=== PATIENT | female | born 1990 | race Caucasian/White ===

== ENCOUNTER 2016-12-21 23:30 | Inpatient (IN) | payer MEDICARE, MEDICAID ==
--- NOTE | 2016-12-22 00:26 | EDM.PDOC ---
ED HPI GENERAL MEDICAL PROBLEM - General Chief Complaint: Chest Pain Stated Complaint: [facility] Time Seen by Provider: 12/21/16 23:45 Source of Information: Reports: Patient, EMS, Other ( care home records. ) History Limitations: Reports: No Limitations - History of Present Illness INITIAL COMMENTS - FREE TEXT/NARRATIVE: Pt arrived with a history of left sided pain under the diaphram and pain in the left upper abdoman. She states she has not been able to hold anything down all day. pt had an ekg in the ambulance-- 12 lead that looked normal. A repeat ekg will be obtained here. Asa was not given because this was more abdomanal pain than chest pain. Onset: Gradual, Other ( worse today. ) Duration: Day(s):, Getting Worse, Other ( Pt was not able to hold anything down all day today. ) Location: Reports: Chest, Abdomen Associated Symptoms: Reports: Chest Pain, Nausea/Vomiting, Weakness Chest Pain Score (Numeric/FACES): 8 - Related Data Allergies Allergy/AdvReac Type Severity Reaction Status Date / Time bee venom Allergy Other Uncoded 06/27/16 08:00 Home Meds: Home Meds ARIPiprazole [Abilify] 15 mg PO DAILY 03/21/16 [History] Citalopram Hydrobromide [Celexa] 10 mg PO DAILY 03/21/16 [History] Cyanocobalamin (Vitamin B-12) [Vitamin B-12] 1,000 mcg PO DAILY 03/21/16 [ History] Acetaminophen [Tylenol] 650 mg PO Q4H PRN #100 tablet 05/08/16 [Rx] Ondansetron [Zofran ODT] 4 mg PO Q4H PRN #30 tab.dis 05/08/16 [Rx] Pantoprazole [ProTONIX] 40 mg PO ACBREAKFAST #90 tab.cr 05/08/16 [Rx] Ca Carbonate/Vitamin D3/Vit K [Calcium + D Soft Chewable Tab] 1 each PO BID 04/26 [History] Cholecalciferol (Vitamin D3) [Vitamin D3] 3,000 unit PO DAILY 05/22/16 [History] Multivitamins with Iron [Child Chew Iron] 1 tab PO BID 05/22/16 [History] Multivits,Th w-Fe,Other Min [Complete Multivitamin] 1 each PO BID 05/22/16 [ History] Sennosides [Senna] 8.6 mg PO BID 05/22/16 [History] Thiamine [Vitamin B-1] 100 mg PO DAILY 06/05/16 [History] Mirtazapine 15 mg PO BEDTIME 06/16/16 [History] Desogestrel-Ethinyl Estradiol [Juleber 28 Day Tablet] 1 tab PO DAILY 12/21/16 [ History] FLUoxetine [PROzac] 10 mg PO DAILY 12/21/16 [History] Magnesium Oxide [Magnesium Oxide] 400 mg PO DAILY 12/21/16 [History] Past Medical History HEENT History: Reports: Impaired Vision Other HEENT History: wears glasses Gastrointestinal History: Reports: Chronic Diarrhea, GERD, Hiatal Hernia 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: Other (See Below) Other OB/BYN History: on bcp doesnt get menstrual periods Musculoskeletal History: Reports: Arthritis, Other (See Below) Other Musculoskeletal History: legs Neurological History: Reports: Seizure Other Neuro History: last seizure 12/2015 Psychiatric History: Reports: Anxiety, Bipolar, Depression, PTSD Endocrine/Metabolic History: Reports: Obesity/BMI 30+ Other Endocrine/Metabolic History: wt loss 100# Hematologic History: Reports: B12 Deficiency, Iron Deficiency - Past Surgical History GI Surgical History: Reports: Bariatric Procedure, Colonoscopy, EGD, Other (See Below) Other GI Surgeries/Procedures: GBP 8 mo ago 100 lb wt loss Social & Family History - Family History Family Medical History: Noncontributory - Tobacco Use Smoking Status *Q: Never Smoker Second Hand Smoke Exposure: No - Caffeine Use Caffeine Use: Reports: None - Recreational Drug Use Recreational Drug Use: No ED ROS GENERAL - Review of Systems Review Of Systems: See Below Constitutional: Reports: Other (pt has had some chilling. ) HEENT: Reports: No Symptoms Respiratory: Reports: No Symptoms Cardiovascular: Reports: Other ( pain in the lkeft chest more under the diaphram. ) Endocrine: Reports: No Symptoms GI/Abdominal: Reports: Abdominal Pain, Other ( Pt has pain in the left upper abdoman. ) : Reports: No Symptoms Musculoskeletal: Reports: No Symptoms Skin: Reports: No Symptoms ED EXAM, GENERAL - Physical Exam Exam: See Below Free Text/Narrative:: pt arrived with a history of pain in left diaphram area and left upper abdoman. She has had a RNY in the past. She states that she has lost 100 lbs. She has been vomiting all day. Exam Limited By: No Limitations General Appearance: Alert, Anxious Ears: Normal TMs Nose: Normal Inspection Throat/Mouth: Normal Inspection Head: Atraumatic Neck: Normal Inspection Respiratory/Chest: No Respiratory Distress Cardiovascular: Regular Rate, Rhythm GI/Abdominal: Tender, Other (pt has tenderness in the left upper abdoman extending into the lower abdoman. ) (Female) Exam: Deferred Rectal (Female) Exam: Deferred Back Exam: Normal Inspection Extremities: Normal Inspection Course - Vital Signs Last Recorded V/S: Last Vital Signs Temp 37.1 C 12/21/16 23:44 Pulse 82 12/22/16 01:01 Resp 16 12/22/16 01:01 BP 112/75 12/22/16 01:01 Pulse Ox 100 12/22/16 01:01 - Orders/Labs/Meds Orders: Active Orders 24 hr Category Date Time Status EKG Documentation Completion [RC] ASDIRECTED Care 12/21/16 23:35 Active Abdomen 2V AP Flat Upright [CR] Stat Exams 12/22/16 00:19 Taken Abdomen Pelvis w Cont [CT] Stat Exams 12/22/16 00:37 Taken Chest 1V Frontal [CR] Stat Exams 12/21/16 23:35 Taken Iopamidol [Isovue-300 (61%)] Med 12/22/16 00:45 Active 100 ml IV . DIRECTED Magnesium Citrate [Citrate of Magnesia] Med 12/22/16 01:47 Once 296 ml PO ONETIME ONE Sodium Chloride 0.9% [Normal Saline] 1,000 ml Med 12/22/16 00:30 Active IV ASDIRECTED Sodium Chloride 0.9% [Normal Saline] 80 ml Med 12/22/16 00:45 Active IV ASDIRECTED Sodium Chloride 0.9% [Saline Flush] Med 12/22/16 00:43 Active 10 ml FLUSH ASDIRECTED PRN EKG 12 Lead [EK] Routine Ther 12/21/16 23:34 Ordered Medication Orders Sodium Chloride (Normal Saline) 1,000 mls @ 999 mls/hr IV ASDIRECTED RASHAD Last Admin: 12/22/16 01:00 Dose: 999 mls/hr Sodium Chloride (Normal Saline) 80 mls @ 3 mls/sec IV ASDIRECTED RASHAD Last Admin: 12/22/16 01:10 Dose: 3 mls/sec Iopamidol (Isovue-300 (61%)) 100 ml IV . DIRECTED RASHAD Last Admin: 12/22/16 01:10 Dose: 100 ml Magnesium Citrate (Citrate Of Magnesia) 296 ml PO ONETIME ONE Stop: 12/22/16 01:48 Sodium Chloride (Saline Flush) 10 ml FLUSH ASDIRECTED PRN PRN Reason: Keep Vein Open Last Admin: 12/22/16 01:10 Dose: 10 ml Labs: Laboratory Tests 12/21/16 12/21/16 12/21/16 Range/Units 23:43 23:43 23:43 WBC 5.0 (4.5-11.0) K/uL RBC 3.96 (3.30-5.50) M/uL Hgb 11.8 L D (12.0-15.0) g/dL Hct 37.6 (36.0-48.0) % MCV 95 (80-98) fL MCH 30 (27-31) pg MCHC 31 L (32-36) % Plt Count 145 L (150-400) K/uL Neut % (Auto) 60 (36-66) % Lymph % (Auto) 34 (24-44) % [place] % (Auto) 4 (2-6) % Eos % (Auto) 2 (2-4) % Baso % (Auto) 1 (0-1) % Sodium 142 (140-148) mmol/L Potassium 3.9 (3.6-5.2) mmol/L Chloride 108 (100-108) mmol/L Carbon Dioxide 27 (21-32) mmol/L Anion Gap 7.2 (5.0-14.0) mmol/L BUN 11 D (7-18) mg/dL Creatinine 0.8 D (0.6-1.0) mg/dL Est Cr Clr Drug Dosing 83.54 mL/min Estimated GFR (MDRD) > 60 (>60) Glucose 83 (74-106) mg/dL Calcium 8.2 L (8.5-10.1) mg/dL Total Bilirubin 0.3 D (0.2-1.0) mg/dL AST 19 (15-37) U/L ALT 11 L (12-78) U/L Alkaline Phosphatase 73 (46-116) U/L Troponin I < 0.017 (0.000-0.056) ng/mL Total Protein 7.4 (6.4-8.2) g/dL Albumin 3.6 (3.4-5.0) g/dL Globulin 3.8 H (2.3-3.5) g/dL Albumin/Globulin Ratio 1.0 L (1.2-2.2) Urine Color Urine Appearance Urine pH (4.5-8.0) Ur Specific Brutus (1.008-1.030) Urine Protein (NEGATIVE) mg/dL Urine Glucose (UA) (NEGATIVE) mg/dL Urine Ketones (NEGATIVE) mg/dL Urine Occult Blood (NEGATIVE) Urine Nitrite (NEGATIVE) Urine Bilirubin (NEGATIVE) Urine Urobilinogen (NORMAL) mg/dL Ur Leukocyte Esterase (NEGATIVE) Urine RBC (0-5) Urine WBC (0-5) Ur Epithelial Cells Amorphous Sediment Urine Bacteria Urine Mucus 12/22/16 Range/Units 00:39 WBC (4.5-11.0) K/uL RBC (3.30-5.50) M/uL Hgb (12.0-15.0) g/dL Hct (36.0-48.0) % MCV (80-98) fL MCH (27-31) pg MCHC (32-36) % Plt Count (150-400) K/uL Neut % (Auto) (36-66) % Lymph % (Auto) (24-44) % [place] % (Auto) (2-6) % Eos % (Auto) (2-4) % Baso % (Auto) (0-1) % Sodium (140-148) mmol/L Potassium (3.6-5.2) mmol/L Chloride (100-108) mmol/L Carbon Dioxide (21-32) mmol/L Anion Gap (5.0-14.0) mmol/L BUN (7-18) mg/dL Creatinine (0.6-1.0) mg/dL Est Cr Clr Drug Dosing mL/min Estimated GFR (MDRD) (>60) Glucose (74-106) mg/dL Calcium (8.5-10.1) mg/dL Total Bilirubin (0.2-1.0) mg/dL AST (15-37) U/L ALT (12-78) U/L Alkaline Phosphatase (46-116) U/L Troponin I (0.000-0.056) ng/mL Total Protein (6.4-8.2) g/dL Albumin (3.4-5.0) g/dL Globulin (2.3-3.5) g/dL Albumin/Globulin Ratio (1.2-2.2) Urine Color Yellow Urine Appearance Clear Urine pH 5.0 (4.5-8.0) Ur Specific Brutus 1.015 (1.008-1.030) Urine Protein Negative (NEGATIVE) mg/dL Urine Glucose (UA) 100 H (NEGATIVE) mg/dL Urine Ketones Negative (NEGATIVE) mg/dL Urine Occult Blood Negative (NEGATIVE) Urine Nitrite Negative (NEGATIVE) Urine Bilirubin Negative (NEGATIVE) Urine Urobilinogen Normal (NORMAL) mg/dL Ur Leukocyte Esterase Negative (NEGATIVE) Urine RBC 0-5 (0-5) Urine WBC 0-5 (0-5) Ur Epithelial Cells Few Amorphous Sediment Few Urine Bacteria Few Urine Mucus Not seen Meds: Medications Generic Name Dose Route Start Last Admin Trade Name Freq PRN Reason Stop Dose Admin Sodium Chloride 1,000 mls @ 999 mls/hr 12/22/16 00:30 12/22/16 01:00 Normal Saline IV 999 mls/hr ASDIRECTED RASHAD Administration Sodium Chloride 80 mls @ 3 mls/sec 12/22/16 00:45 12/22/16 01:10 Normal Saline IV 3 mls/sec ASDIRECTED RASHAD Administration Iopamidol 100 ml 12/22/16 00:45 12/22/16 01:10 Isovue-300 (61%) IV 100 ml . DIRECTED RASHAD Administration Magnesium Citrate 296 ml 12/22/16 01:47 Citrate Of Magnesia PO 12/22/16 01:48 ONETIME ONE Sodium Chloride 10 ml 12/22/16 00:43 12/22/16 01:10 Saline Flush FLUSH 10 ml ASDIRECTED PRN Administration Keep Vein Open - Re-Assessments/Exams Free Text/Narrative Re-Assessment/Exam: 12/22/16 01:48 cat scan of the abdoman showed constipation, she will be admitted for dehydration. Departure - Departure Time of Disposition: 01:50 Disposition: Admitted As Inpatient 65 Condition: Fair Clinical Impression: Dehydration, Constipation Forms: ED Department Discharge Care Plan Goals: admit to Dr Santa. - My Orders Last 24 Hours: My Active Orders 12/21/16 23:34 EKG 12 Lead [EK] Routine 12/21/16 23:35 EKG Documentation Completion [RC] ASDIRECTED Chest 1V Frontal [CR] Stat 12/22/16 00:19 Abdomen 2V AP Flat Upright [CR] Stat 12/22/16 00:30 Sodium Chloride 0.9% [Normal Saline] 1,000 ml IV ASDIRECTED 12/22/16 00:37 Abdomen Pelvis w Cont [CT] Stat 12/22/16 00:43 Sodium Chloride 0.9% [Saline Flush] 10 ml FLUSH ASDIRECTED PRN 12/22/16 00:45 Iopamidol [Isovue-300 (61%)] 100 ml IV . DIRECTED Sodium Chloride 0.9% [Normal Saline] 80 ml IV ASDIRECTED 12/22/16 01:47 Magnesium Citrate [Citrate of Magnesia] 296 ml PO ONETIME ONE - Assessment/Plan Last 24 Hours: My Active Orders 12/21/16 23:34 EKG 12 Lead [EK] Routine 12/21/16 23:35 EKG Documentation Completion [RC] ASDIRECTED Chest 1V Frontal [CR] Stat 12/22/16 00:19 Abdomen 2V AP Flat Upright [CR] Stat 12/22/16 00:30 Sodium Chloride 0.9% [Normal Saline] 1,000 ml IV ASDIRECTED 12/22/16 00:37 Abdomen Pelvis w Cont [CT] Stat 12/22/16 00:43 Sodium Chloride 0.9% [Saline Flush] 10 ml FLUSH ASDIRECTED PRN 12/22/16 00:45 Iopamidol [Isovue-300 (61%)] 100 ml IV . DIRECTED Sodium Chloride 0.9% [Normal Saline] 80 ml IV ASDIRECTED
[2016-12-22] MEDS ORDERED: Sodium Chloride 0.9% 1,000 ML IV SCH (00:30)
[2016-12-22] MEDS ORDERED: Sodium Chloride 0.9% 10 ML Syringe FLUSH PRN (00:43)
[2016-12-22] MEDS ORDERED: Sodium Chloride 0.9% 80 ML IV SCH (00:45)
[2016-12-22] MEDS ORDERED: Iopamidol 612 MG/ML 100 ML Bottle IV SCH (00:45)
[2016-12-22] MEDS ORDERED: Magnesium Citrate Solution 296 ML Bottle PO ONE (01:47)
[2016-12-22] MEDS ORDERED: Ondansetron 4 MG/2 ML SDV IVPUSH PRN (02:03)
[2016-12-22] MEDS ORDERED: HYDROmorphone 0.5 MG/0.5 ML Syringe IVPUSH PRN (02:04)
[2016-12-22] MEDS: Sodium Chloride 0.9% 1,000 ML IV SCH ×2 (02:52→06:09)
[2016-12-22] MEDS ORDERED: Acetaminophen 325 MG Tab PO PRN (08:13)
[2016-12-22] MEDS ORDERED: Ondansetron 4 MG Tab.DIS PO PRN (08:13)
[2016-12-22] MEDS ORDERED: Dextrose 5%-Lactated Ringers 1,000 ML IV SCH (08:15)
--- NOTE | 2016-12-22 08:47 | CR ---
Abdomen 2V AP Flat Upright INDICATION: pain in the abdomen. COMPARISON: 05/30/2015 FINDINGS: 3 views. Surgical clips left upper quadrant. Large amount stool throughout colon. No defi nite signs of obstruction. Mild air distention of the colon as well. IMPRESSION: Large amount of stool throughout the colon with mild distention. No definite signs of o bstruction at this time.
--- NOTE | 2016-12-22 08:53 | CR ---
Chest 1V Frontal INDICATION: chest pain. COMPARISON: 06/07/2015 FINDINGS: Single AP portable view of the chest. Previous left subclavian central line is been gian rafy. Heart size normal. No infiltrates or pleural effusions. IMPRESSION: Nothing acute.
[2016-12-22] MEDS ORDERED: Pantoprazole 40 MG Vial IVPUSH SCH (09:00)
[2016-12-22] MEDS: Iron Sucrose Complex 500 MG in Sodium Chloride 0.9% 250 ML IV SCH (09:54)
[2016-12-22] MEDS ORDERED: Midazolam 1 MG/ML 2 ML SDV ONE (10:15)
[2016-12-22] MEDS ORDERED: Propofol 200 MG/20 ML SDV ONE ×2 (10:15→12:33)
[2016-12-22] MEDS ORDERED: fentaNYL 100 MCG/2 ML SDV ONE (10:15)
[2016-12-22] MEDS ORDERED: Lactated Ringers 1,000 ML ONE (11:50)
--- NOTE | 2016-12-22 12:34 | PCM.HP ---
H&P History of Present Illness - General Date of Service: 12/22/16 Admit Problem/Dx: Admission Diagnosis/Problem Admission Diagnosis/Problem Constipation Source of Information: Patient History Limitations: Reports: Altered Mental Status - History of Present Illness Initial Comments - Free Text/Narative: Breanna states she really doesn't know why she is in the hospital. She states she had some chest pain yesterday but it is gone. Breanna states she is also constipated and last BM was yesterday. Onset of Symptoms: Reports: Unknown/Unsure Location: Reports: Abdomen Severity: Mild Improves with: Reports: None Worsens with: Reports: None Associated Symptoms: Reports: No Other Symptoms Chest Pain Score (Numeric/FACES): 0 - Related Data Allergies/Adverse Reactions: Allergies Allergy/AdvReac Type Severity Reaction Status Date / Time bee venom Allergy Other Uncoded 06/27/16 08:00 Home Medications: Home Meds ARIPiprazole [Abilify] 15 mg PO DAILY 03/21/16 [History] Citalopram Hydrobromide [Celexa] 10 mg PO DAILY 03/21/16 [History] Cyanocobalamin (Vitamin B-12) [Vitamin B-12] 1,000 mcg PO DAILY 03/21/16 [ History] Acetaminophen [Tylenol] 650 mg PO Q4H PRN #100 tablet 05/08/16 [Rx] Ondansetron [Zofran ODT] 4 mg PO Q4H PRN #30 tab.dis 05/08/16 [Rx] Pantoprazole [ProTONIX] 40 mg PO ACBREAKFAST #90 tab.cr 05/08/16 [Rx] Ca Carbonate/Vitamin D3/Vit K [Calcium + D Soft Chewable Tab] 1 each PO BID 04/26 [History] Cholecalciferol (Vitamin D3) [Vitamin D3] 3,000 unit PO DAILY 05/22/16 [History] Multivitamins with Iron [Child Chew Iron] 1 tab PO BID 05/22/16 [History] Multivits,Th w-Fe,Other Min [Complete Multivitamin] 1 each PO BID 05/22/16 [ History] Sennosides [Senna] 8.6 mg PO BID 05/22/16 [History] Thiamine [Vitamin B-1] 100 mg PO DAILY 06/05/16 [History] Mirtazapine 15 mg PO BEDTIME 06/16/16 [History] Desogestrel-Ethinyl Estradiol [Juleber 28 Day Tablet] 1 tab PO DAILY 12/21/16 [ History] FLUoxetine [PROzac] 10 mg PO DAILY 12/21/16 [History] Magnesium Oxide [Magnesium Oxide] 400 mg PO DAILY 12/21/16 [History] Past Medical History HEENT History: Reports: Impaired Vision Other HEENT History: wears glasses Gastrointestinal History: Reports: Chronic Diarrhea, GERD, Hiatal Hernia 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 (See Below) Other OB/BYN History: on bcp doesnt get menstrual periods Musculoskeletal History: Reports: Arthritis, Other (See Below) Other Musculoskeletal History: legs Neurological History: Reports: Seizure Other Neuro History: last seizure 12/2015 Psychiatric History: Reports: Anxiety, Bipolar, Depression, PTSD Endocrine/Metabolic History: Reports: Obesity/BMI 30+ Other Endocrine/Metabolic History: wt loss 100# Hematologic History: Reports: B12 Deficiency, Iron Deficiency - Past Surgical History GI Surgical History: Reports: Bariatric Procedure, Colonoscopy, EGD, Other (See Below) Other GI Surgeries/Procedures: GBP 8 mo ago 100 lb wt loss Social & Family History - Family History Family Medical History: Noncontributory - Tobacco Use Smoking Status *Q: Never Smoker Second Hand Smoke Exposure: No - Caffeine Use Caffeine Use: Reports: None - Recreational Drug Use Recreational Drug Use: No H&P Review of Systems - Review of Systems: Review Of Systems: See Below General: Reports: No Symptoms HEENT: Reports: No Symptoms Pulmonary: Reports: No Symptoms Cardiovascular: Reports: Chest Pain Gastrointestinal: Reports: Abdominal Pain, Difficulty Swallowing Genitourinary: Reports: No Symptoms Musculoskeletal: Reports: No Symptoms Skin: Reports: No Symptoms Psychiatric: Reports: Mood Lability Neurological: Reports: No Symptoms Hematologic/Lymphatic: Reports: No Symptoms Immunologic: Reports: No Symptoms Exam - Exam Exam: See Below - Vital Signs Vital Signs: Last Vital Signs Temp 98.1 F 12/22/16 12:25 Pulse 60 12/22/16 12:25 Resp 12 12/22/16 12:25 BP 104/60 12/22/16 12:25 Pulse Ox 100 12/22/16 12:25 Weight: 149 lb 12.795 oz - Exam Quality Assessment: DVT Prophylaxis General: Mild Distress HEENT: PERRLA Neck: Supple, Trachea Midline Lungs: Clear to Auscultation, Normal Respiratory Effort Cardiovascular: Regular Rate, Regular Rhythm GI/Abdominal Exam: Soft, Non-Tender (Female) Exam: Deferred Rectal (Female) Exam: Deferred Back Exam: Normal Inspection, Full Range of Motion Extremities: Normal Inspection, Normal Range of Motion Skin: Warm, Dry, Intact Neurological: Cranial Nerves Intact, Reflexes Equal Bilateral Neuro Extensive - Mental Status: Oriented x3 Neuro Extensive - Motor, Sensory, Reflexes: CN II-XII Intact Psychiatric: Labile Mood - Patient Data Result Diagrams: 12/21/16 23:43 12/21/16 23:43 *Q Meaningful Use (ADM) - VTE *Q VTE Criteria *Q: - Stroke *Q Stroke Criteria *Q: - AMI *Q AMI Criteria *Q: - Problem List (1) Constipation SNOMED Code(s): 48043474 ICD Code: K59.00 - CONSTIPATION, UNSPECIFIED Status: Acute Current Visit : Yes (2) Dehydration SNOMED Code(s): 16653445 ICD Code: E86.0 - DEHYDRATION Status: Acute Current Visit: Yes Problem List Initiated/Reviewed/Updated: Yes Orders Last 24hrs: Active Orders 24 hr Category Date Time Status May Shower [RC] ASDIRECTED Care 12/22/16 08:13 Active May Shower [RC] ASDIRECTED Care 12/22/16 08:15 Active Notify Provider Consults [RC] ASDIRECTED Care 12/22/16 02:06 Active Verify Patient Consent Obtain [RC] ASDIRECTED Care 12/22/16 08:08 Active Consult to Physician [CONS] Routine Cons 12/22/16 02:05 Ordered NPO [Nothing Per Oral Diet] [DIET] Diet 12/22/16 Breakfast Active OR Fluoro-NC [CR] Routine Exams 12/22/16 00:00 Ordered ARIPiprazole [Abilify] Med 12/22/16 09:00 Active 15 mg PO DAILY Acetaminophen [Tylenol] Med 12/22/16 08:13 Active 650 mg PO Q4H PRN Citalopram [Celexa] Med 12/22/16 09:00 Active 10 mg PO DAILY Desogestrel-Ethinyl Estradiol [Juleber 28 Day Tablet] Med 12/22/16 09:00 Active 1 tab PO DAILY Dextrose 5%-Lactated Ringers 1,000 ml Med 12/22/16 08:15 Active IV ASDIRECTED FLUoxetine [PROzac] Med 12/22/16 09:00 Active 10 mg PO DAILY Iron Sucrose Complex [Venofer] 500 mg Med 12/22/16 09:00 Active Sodium Chloride 0.9% [Normal Saline] 250 ml IV Q24H Mirtazapine [Remeron] Med 12/22/16 21:00 Active 15 mg PO BEDTIME Ondansetron [Zofran ODT] Med 12/22/16 08:13 Active 4 mg PO Q4H PRN Ondansetron [Zofran] Med 12/22/16 02:03 Active 4 mg IVPUSH Q6H PRN Pantoprazole [ProTONIX IV] Med 12/22/16 09:00 Active 40 mg IVPUSH Q12H SCD [Sequential Compression Device] [OM.PC] Routine Oth 12/22/16 02:07 Ordered Medication Orders Acetaminophen (Tylenol) 650 mg PO Q4H PRN PRN Reason: Pain Aripiprazole (Abilify) 15 mg PO DAILY [facility] Citalopram Hydrobromide (Celexa) 10 mg PO DAILY [facility] Fluoxetine HCl (Prozac) 10 mg PO DAILY [facility] Dextrose/Lactated Ringer's (Dextrose 5%-Lactated Ringers) 1,000 mls @ 125 mls/ hr IV ASDIRECTED [facility] Iron Sucrose 500 mg/ Sodium (Chloride) 275 mls @ 62.5 mls/hr IV Q24H [facility] Stop: 12/23/16 13:23 Last Admin: 12/22/16 09:54 Dose: 62.5 mls/hr Mirtazapine (Remeron) 15 mg PO BEDTIME [facility] Kristopher 28 Day (Tablet (Ptom)) 1 tab PO DAILY [facility] Ondansetron HCl (Zofran) 4 mg IVPUSH Q6H PRN PRN Reason: Nausea/Vomiting Ondansetron HCl (Zofran Odt) 4 mg PO Q4H PRN PRN Reason: Nausea Pantoprazole Sodium (Protonix Iv) 40 mg IVPUSH Q12H [facility] Last Admin: 12/22/16 09:55 Dose: 40 mg Sodium Chloride (Saline Flush) 10 ml FLUSH ASDIRECTED PRN PRN Reason: Keep Vein Open Last Admin: 12/22/16 01:10 Dose: 10 ml
[2016-12-22] MEDS: ARIPiprazole 10 MG Tab PO SCH (13:00)
[2016-12-22] MEDS: Citalopram 10 MG Tab PO SCH (13:00)
[2016-12-22] MEDS: FLUoxetine 10 MG Cap PO SCH (13:00)
[2016-12-22] MEDS: JULEBER PO SCH (13:34)
[2016-12-22] MEDS: Dextrose 5%-Lactated Ringers 1,000 ML IV SCH (14:32)
[2016-12-22] MEDS: Mirtazapine 15 MG Tab PO SCH (21:05)
[2016-12-23] MEDS: Dextrose 5%-Lactated Ringers 1,000 ML IV SCH (00:38)
[2016-12-23] MEDS ORDERED: Iohexol 647 MG/ML 50 ML SDV PO STA (03:52)
[2016-12-23] MEDS: Pantoprazole 40 MG Tab.CR PO SCH (07:27)
[2016-12-23] MEDS: ARIPiprazole 10 MG Tab PO SCH (08:20)
[2016-12-23] MEDS: FLUoxetine 10 MG Cap PO SCH (08:20)
[2016-12-23] MEDS: Iron Sucrose Complex 500 MG in Sodium Chloride 0.9% 250 ML IV SCH (08:21)
[2016-12-23] MEDS: Citalopram 10 MG Tab PO SCH (08:21)
[2016-12-23] MEDS: JULEBER PO SCH (08:23)
--- NOTE | 2016-12-23 09:06 | CR ---
UGI wo KUB HISTORY: eval RY FINDINGS: After administration of oral contrast, upright views were obtained. Post operative changes gastric bypass. Surgical drains in place. No evidence for leak. Contrast passes freely into proxima l small bowel loops. IMPRESSION: No evidence for leak or obstruction.
[2016-12-23] MEDS: Mirtazapine 15 MG Tab PO SCH (21:15)
[2016-12-24] MEDS: Dextrose 5%-Lactated Ringers 1,000 ML IV SCH (01:56)
[2016-12-24 07:24] VITALS: BP 98/60
--- NOTE | 2016-12-24 07:30 | PN ---
DATE OF SERVICE: 12/23/2016 The patient has been afebrile with stable vital signs. Oral intake was fairly good. She had around 50% of her lunch and 75% of supper. We will monitor that one more day. The upper GI x-ray looked okay, so there are no distal obstructions. If she continues to eat satisfactorily, will get her back to the care home tomorrow. Reuben Santa MD /[id number]
[2016-12-24] MEDS: Pantoprazole 40 MG Tab.CR PO SCH (08:27)
[2016-12-24] MEDS: Citalopram 10 MG Tab PO SCH (08:27)
[2016-12-24] MEDS: ARIPiprazole 10 MG Tab PO SCH (08:28)
[2016-12-24] MEDS: JULEBER PO SCH (08:28)
[2016-12-24] MEDS: FLUoxetine 10 MG Cap PO SCH (08:28)
--- NOTE | 2016-12-25 12:18 | DISCH ---
ADMISSION DIAGNOSES: 1. Chest pain. 2. SP Cristina-en-Y gastric bypass surgery. 3. Unspecified surgical malabsorption. 4. B12 deficiency. 5. Arthritis. 6. Anxiety. 7. Bipolar. 8. Depression. 9. Posttraumatic stress disorder. 10.Iron deficiency anemia. DISCHARGE DIAGNOSES: 1. EGD on 12/22/2016. 2. Dehydration. 3. Constipation. HISTORY: Breanna Malave was admitted on 12/21/2016 to the emergency room via ambulance for chest pain. She had a complete workup in the ER, was admitted to [address] [place] [address] for dehydration and constipation. On the first day of hospitalization, 12/22/2016, she had an upper GI endoscopy, which was normal. She was continued on IV of D5LR and her home medications were started. She was given bowel stimulation and did have 2 bowel movements starting on 12/22/2016 and 1 on 12/23/2016and two more on 12/23/2106. She received dietary instruction. Her activity was good. She was able to be discharged on Thursday12/24/2016. REVIEW OF SYSTEMS: HEENT: Negative. NECK: Negative. CHEST: No chest pain, shortness of breath, fast or irregular heart beat. LUNGS: No cough. ABDOMEN: Negative for nausea, vomiting, diarrhea, or constipation. : Negative. EXTREMITIES: Without joint pain or swelling. NEURO: No headache, dizziness, loss of coordination. PSYCHIATRIC: Negative. OBJECTIVE: GENERAL: Breanna Malave is a 26-year-old female. VITAL SIGNS: Height is 5 feet 1.81 inches, weight is 149 pounds, TPR is 99, 70, 16, blood pressure 98/60. HEENT: Negative. NECK: Supple. HEART: Regular rate and rhythm. LUNGS: Clear. ABDOMEN: Soft, nontender. EXTREMITIES: Without peripheral edema. NEURO: Intact. PSYCHIATRIC: Mood and affect appropriate. DISPOSITION: Discharge to home. CONDITION: Stable and improving. FOLLOWUP APPOINTMENT: With Sakina Hernandez PA-C, on 01/14/2017 at 9:15 a.m. HOME MEDICATIONS: Senokot-S 2 tablets at bedtime, #60. She is to resume her home medication Abilify 15 mg oral daily, Tylenol 650 mg q.6 hours, calcium citrate chewable 1 twice daily, vitamin D3 of 3000 International Units daily, Celexa 10 mg orally, vitamin B12 of 1000 mcg daily, Juleber 28-day tablet 1 tablet daily, Prozac 10 mg oral daily, magnesium oxide 400 mg oral daily, mirtazapine 15 mg oral at bedtime, multivitamin chewable twice daily, Zofran ODT 4 mg sublingual q.4 hours p.r.n. nausea, Protonix 40 mg before breakfast, senna 8.6 mg oral twice daily, thiamine 100 mg oral daily. DIET: After discharge, step 4 gastric bypass diet. Drink 8 to 10 glasses of water a day. ACTIVITY: As tolerated. SHOWER/BATHING: May shower. Notify provider if any fever, nausea, or vomiting.
--- NOTE | 2016-12-29 12:03 | OR ---
DATE OF PROCEDURE: 12/22/2016 PREOPERATIVE DIAGNOSES: Reported dysphasia, nausea, and vomiting. POSTOPERATIVE DIAGNOSES: Normal upper GI endoscopic examination, status post Cristina-en-Y gastric bypass. OPERATIVE PROCEDURE: Upper GI endoscopy. ANESTHESIA: IV sedation. INDICATION FOR PROCEDURE: This is a 26-year-old presenting with complaints of nausea and emesis, status post Cristina-en-Y gastric bypass. There was an ongoing concern about this being likely related to more of an eating disorder, but to rule out any ongoing pathology, an upper endoscopy needs to be undertaken. It was notable that after admission, the patient has been actually eating quite well. The plan is to proceed with an upper GI endoscopy with biopsies and/or dilation as indicated. Potential risks including bleeding and perforation were discussed, and the patient wishes to proceed. DETAILS OF PROCEDURE: The patient was taken to the operating room and placed in a left lateral decubitus position. IV sedation was administered, after which the upper GI endoscope was passed orally through the length of the esophagus, into the gastric pouch, and from there through the gastrojejunostomy roughly 25 cm into the Cristina limb. Overall, the findings were entirely normal. There was no significant inflammation within the esophagus, EG junction, or gastric pouch. Likewise, there was no evidence of inflammation or marginal ulceration at the gastrojejunostomy. The gastrojejunostomy was widely open. The visualized portion of the Cristina limb was likewise unremarkable. Overall, there appeared to be no anatomic abnormalities or significant inflammatory process within the gastric bypass anatomy. The scope was then withdrawn, and the above findings reconfirmed. The patient will be initiated on fluid, and we will keep her overnight just to confirm that adequate oral intake is able to be continued. Reuben Santa MD /[id number]
== END 2016-12-24 11:10 | disposition home or self-care (01) | DRG 392 ==
LOC: JP.ED 23:30 → JP.MS 12-22 01:55
PROVIDERS: ADMIT Surgery; ATTEND Surgery
PROC: 0DJ08ZZ Inspection of Upper Intestinal Tract, Via Natural or Artificial Opening Endoscopic (ICD-10-PCS; principal; 2016-12-22)
DX: K59.00 Constipation, unspecified (principal); K91.2 Postsurgical malabsorption, not elsewhere classified; Z98.84 Bariatric surgery status; E53.8 Deficiency of other specified B group vitamins; M19.90 Unspecified osteoarthritis, unspecified site; F41.9 Anxiety disorder, unspecified; F31.9 Bipolar disorder, unspecified; F43.10 Post-traumatic stress disorder, unspecified; D50.9 Iron deficiency anemia, unspecified; E86.0 Dehydration
CPT/HCPCS: 71010 ×2; 74020 ×2; 74177; 80053; 81001; 93005; 99285; J7030; J7040; J7050; Q9967; 36415; 74240; 74240-26; 83735; 84100; 84484; 85025; 85027; 93010; 99284; A9270-GY; C9113; J1170; J1756; J2250; J2704; J3010; J7042; J7120

== ENCOUNTER 2017-01-03 03:26 | Emergency (ER) | payer MEDICARE, MEDICAID ==
[2017-01-03 03:57] VITALS: BP 113/74
--- NOTE | 2017-01-03 05:47 | EDM.PDOC ---
ED HPI GENERAL MEDICAL PROBLEM - General Chief Complaint: Chest Pain Stated Complaint: MEDICAL [facility]IA [facility] Time Seen by Provider: 01/03/17 04:03 Source of Information: Reports: Patient History Limitations: Reports: No Limitations - History of Present Illness INITIAL COMMENTS - FREE TEXT/NARRATIVE: History of present illness: [26-year-old female from a custodial in the [facility] has a history of a gastric Cristina-en-Y. She presents here complaining of chest pain and abdominal pain. This apparently has been going on for 2 weeks and she states that she's also been vomiting every day and that she cannot keep anything down. She is complaining of severe pain and points to her chest and periumbilical area in showing me where her pain is.] Review of systems: As per history of present illness and below otherwise all systems reviewed and negative. Past medical history: As per history of present illness and as reviewed below otherwise noncontributory. Surgical history: As per history of present illness and as reviewed below otherwise noncontributory. Social history: No reported history of drug or alcohol abuse. Family history: As per history of present illness and as reviewed below otherwise noncontributory. Physical exam: Gen.: She appears very comfortable she does not appear to be in pain she impresses me as someone who is mentally slowed and probably an unreliable historian. HEENT: Atraumatic, normocephalic, pupils reactive, negative for conjunctival pallor or scleral icterus, mucous membranes moist, throat clear, neck supple, nontender, trachea midline. Lungs: Clear to auscultation, breath sounds equal bilaterally, chest nontender. Heart: S1S2, regular, negative for clicks, rubs, or JVD. Abdomen: Soft, nondistended, nontender. Negative for masses or hepatosplenomegaly. Negative for costovertebral tenderness. Pelvis: Stable nontender. Genitourinary: Deferred. Rectal: On rectal examination she had no stool in her vault. Extremities: Atraumatic, negative for cords or calf pain. Neurovascular unremarkable. Neuro: Awake, alert, oriented. Cranial nerves II through XII unremarkable. Cerebellum unremarkable. Motor and sensory unremarkable throughout. Exam nonfocal. Diagnostics: [] Therapeutics: [I did discuss with the staff at the custodial her situation. They state that although she complains of pain she never appears to be in pain and they have never observed her actually vomiting or her turn vomiting and lying in suggesting that they don't believe she is vomiting.] Impression: [Chest and abdominal pain with significant psychological overlay] Plan: [She may have real pathology but nothing emergent at this time and I think she would be better served by following up in the clinic with caregivers who are more familiar with her. I explained this to the staff person I spoke with the custodial.] Definitive disposition and diagnosis as appropriate pending reevaluation and review of above. - Related Data Allergies Allergy/AdvReac Type Severity Reaction Status Date / Time bee venom Allergy Other Uncoded 01/03/17 03:44 Home Meds: Home Meds ARIPiprazole [Abilify] 15 mg PO DAILY 03/21/16 [History] Citalopram Hydrobromide [Celexa] 10 mg PO DAILY 03/21/16 [History] Cyanocobalamin (Vitamin B-12) [Vitamin B-12] 1,000 mcg PO DAILY 03/21/16 [ History] Acetaminophen [Tylenol] 650 mg PO Q4H PRN #100 tablet 05/08/16 [Rx] Ondansetron [Zofran ODT] 4 mg PO Q4H PRN #30 tab.dis 05/08/16 [Rx] Pantoprazole [ProTONIX] 40 mg PO ACBREAKFAST #90 tab.cr 05/08/16 [Rx] Ca Carbonate/Vitamin D3/Vit K [Calcium + D Soft Chewable Tab] 1 each PO BID 04/26 [History] Cholecalciferol (Vitamin D3) [Vitamin D3] 3,000 unit PO DAILY 05/22/16 [History] Multivitamins with Iron [Child Chew Iron] 1 tab PO BID 05/22/16 [History] Multivits,Th w-Fe,Other Min [Complete Multivitamin] 1 each PO BID 05/22/16 [ History] Sennosides [Senna] 8.6 mg PO BID 05/22/16 [History] Thiamine [Vitamin B-1] 100 mg PO DAILY 06/05/16 [History] Mirtazapine 15 mg PO BEDTIME 06/16/16 [History] Desogestrel-Ethinyl Estradiol [Juleber 28 Day Tablet] 1 tab PO DAILY 12/21/16 [ History] FLUoxetine [PROzac] 10 mg PO DAILY 12/21/16 [History] Magnesium Oxide 400 mg PO DAILY 12/21/16 [History] Sennosides/Docusate Sodium [Senokot-S Tablet] 2 each PO BEDTIME #60 tablet 12/24 [Rx] Past Medical History HEENT History: Reports: Impaired Vision Other HEENT History: wears glasses Gastrointestinal History: Reports: Chronic Diarrhea, GERD, Hiatal Hernia GEOLOGICAL MANAGER History: Reports: Other (See Below) Other OB/BYN History: on bcp doesnt get menstrual periods Musculoskeletal History: Reports: Arthritis, Other (See Below) Other Musculoskeletal History: legs Neurological History: Reports: Seizure Other Neuro History: last seizure 12/2015 Psychiatric History: Reports: Anxiety, Bipolar, Depression, PTSD Endocrine/Metabolic History: Reports: Obesity/BMI 30+ Other Endocrine/Metabolic History: wt loss 100# Hematologic History: Reports: B12 Deficiency, Iron Deficiency - Past Surgical History GI Surgical History: Reports: Bariatric Procedure, Colonoscopy, EGD, Other (See Below) Other GI Surgeries/Procedures: GBP 8 mo ago 100 lb wt loss Social & Family History - Family History Family Medical History: Noncontributory - Tobacco Use Smoking Status *Q: Never Smoker Second Hand Smoke Exposure: No - Caffeine Use Caffeine Use: Reports: None - Recreational Drug Use Recreational Drug Use: No ED ROS GENERAL - Review of Systems Review Of Systems: ROS reveals no pertinent complaints other than HPI. ED EXAM, GENERAL - Physical Exam Exam: See Below Course - Vital Signs Last Recorded V/S: Last Vital Signs Temp 36.9 C 01/03/17 03:54 Pulse 86 01/03/17 03:54 Resp 14 01/03/17 03:54 BP 113/74 01/03/17 03:54 Pulse Ox 98 01/03/17 03:54 Departure - Departure Time of Disposition: 05:46 Disposition: Home, Self-Care 01 Condition: Good Clinical Impression: Atypical chest pain Abdominal pain Qualifiers: Abdominal location: unspecified location Qualified Code(s): R10.9 - Unspecified abdominal pain - Discharge Information Referrals: PCP,None [Primary Care Provider] -
== END 2017-01-03 08:45 | disposition home or self-care (01) ==
LOC: JP.ED 03:26
DX: R07.89 Other chest pain (principal); R10.9 Unspecified abdominal pain; K21.9 Gastro-esophageal reflux disease without esophagitis; M19.90 Unspecified osteoarthritis, unspecified site; F31.9 Bipolar disorder, unspecified; F41.9 Anxiety disorder, unspecified; Z98.84 Bariatric surgery status; E66.9 Obesity, unspecified; F43.10 Post-traumatic stress disorder, unspecified; Z79.899 Other long term (current) drug therapy; Z91.030 Bee allergy status
CPT/HCPCS: 99284

== ENCOUNTER 2017-09-26 16:26 | Inpatient (IN) | payer MEDICARE, MEDICAID ==
[2017-09-26] MEDS ORDERED: Sodium Chloride 0.9% 10 ML Syringe FLUSH PRN ×2 (17:05→17:36)
[2017-09-26] MEDS ORDERED: Sodium Chloride 0.9% 1,000 ML IV ONE (17:05)
[2017-09-26] MEDS ORDERED: Ondansetron 4 MG/2 ML SDV IVPUSH ONE (17:06)
--- NOTE | 2017-09-26 17:13 | EDM.PDOC ---
ED HPI GENERAL MEDICAL PROBLEM - General Chief Complaint: Gastrointestinal Problem Stated Complaint: [facility] Time Seen by Provider: 09/26/17 16:50 Source of Information: Reports: Patient History Limitations: Reports: No Limitations - History of Present Illness INITIAL COMMENTS - FREE TEXT/NARRATIVE: Breanna presents today for complaints of falling and hitting her head while walking. She is not sure if she had LOC or not. She states her sister was with her. She also complains of dizziness, vomiting, abdominal pain and diarrhea for 4 weeks. She states she had black/tar like stools and abdominal pain that started 4 weeks ago and bloody streaked emesis over the past 2 weeks x 6 episodes. She did contact Sakina BARAJAS and was instructed to take acetaminophen for pain and switch her protonix to omeprazole. She denies injury or trauma to her abdomen. Bilateral Lower Abdomen Pain Score (Numeric/FACES): 7 - Related Data Allergies Allergy/AdvReac Type Severity Reaction Status Date / Time bee venom Allergy Other Uncoded 09/26/17 16:30 Home Meds: Home Meds ARIPiprazole [Abilify] 10 mg PO DAILY 03/21/16 [History] Cyanocobalamin (Vitamin B-12) [Vitamin B-12] 1,000 mcg PO DAILY 03/21/16 [ History] Acetaminophen [Tylenol] 650 mg PO Q4H PRN #100 tablet 05/08/16 [Rx] Ondansetron [Zofran ODT] 4 mg PO Q4H PRN #30 tab.dis 05/08/16 [Rx] Ca Carbonate/Vitamin D3/Vit K [Calcium + D Soft Chewable Tab] 1 each PO BID 04/26 [History] Cholecalciferol (Vitamin D3) [Vitamin D3] 3,000 unit PO DAILY 05/22/16 [History] Multivitamins with Iron [Child Chew Iron] 1 tab PO BID 05/22/16 [History] Multivits,Th w-Fe,Other Min [Complete Multivitamin] 1 each PO BID 05/22/16 [ History] Sennosides [Senna] 8.6 mg PO BID 05/22/16 [History] Thiamine [Vitamin B-1] 100 mg PO DAILY 06/05/16 [History] Magnesium Oxide 400 mg PO DAILY 12/21/16 [History] Sennosides/Docusate Sodium [Senokot-S Tablet] 2 each PO BEDTIME #60 tablet 12/24 [Rx] OLANZapine [ZyPREXA] 5 mg PO BID 09/26/17 [History] Omeprazole 40 mg PO DAILY 09/26/17 [History] Sertraline [Zoloft] 100 mg PO DAILY 09/26/17 [History] buPROPion HCl [Wellbutrin SR] 150 mg PO DAILY 09/26/17 [History] medroxyPROGESTERone Acetate [Depo-Provera] 1 injection IM ASDIRECTED 09/26/17 [ History] Past Medical History HEENT History: Reports: Impaired Vision Other HEENT History: wears glasses Gastrointestinal History: Reports: Bowel Obstruction, Chronic Constipation, Chronic Diarrhea, GERD, Hiatal Hernia TAPE TRANSFERRER History: Reports: Other (See Below) Other OB/BYN History: on bcp doesnt get menstrual periods Musculoskeletal History: Reports: Arthritis, Other (See Below) Other Musculoskeletal History: legs Neurological History: Reports: Seizure Other Neuro History: last seizure 12/2015 Psychiatric History: Reports: Anxiety, Bipolar, Depression, PTSD Endocrine/Metabolic History: Reports: Obesity/BMI 30+ Other Endocrine/Metabolic History: wt loss 100# Hematologic History: Reports: B12 Deficiency, Iron Deficiency - Past Surgical History GI Surgical History: Reports: Bariatric Procedure, Colonoscopy, EGD, Other (See Below) Other GI Surgeries/Procedures: GBP 8 mo ago 100 lb wt loss Social & Family History - Family History Family Medical History: Noncontributory - Tobacco Use Smoking Status *Q: Never Smoker Second Hand Smoke Exposure: No - Caffeine Use Caffeine Use: Reports: None - Recreational Drug Use Recreational Drug Use: No ED ROS GENERAL - Review of Systems Review Of Systems: See Below Constitutional: Reports: Weakness, Decreased Appetite. Denies: Fever, Chills, Malaise, Diaphoresis HEENT: Reports: No Symptoms Respiratory: Denies: Shortness of Breath, Wheezing, Cough, Sputum Cardiovascular: Denies: Chest Pain, Dyspnea on Exertion, Edema, Lightheadedness , Palpitations, PND, Syncope Endocrine: Reports: No Symptoms GI/Abdominal: Reports: Abdominal Pain, Black Stool, Diarrhea, Decreased Appetite , Hematemesis, Nausea, Vomiting. Denies: Constipation, Distension, Stool Incontinence : Denies: Discharge, Dysuria, Flank Pain, Frequency, Incontinence, Pain, Urgency, Urinary Retention Musculoskeletal: Reports: No Symptoms Skin: Denies: Jaundice, Rash, Erythema, Wound, Lumps Neurological: Reports: Dizziness, Weakness. Denies: Confusion, Headache, Numbness, Tingling, Difficulty Walking, Gait Disturbance Psychiatric: Reports: No Symptoms Hematologic/Lymphatic: Denies: Easy Bleeding, Easy Bruising, Swollen Glands Immunologic: Reports: No Symptoms ED EXAM, GI/ABD - Physical Exam Exam: See Below Text/Narrative:: Breanna is an alert and oriented 26 year old female presenting to the emergency room due to a fall while walking today. She also reports dizziness, vomiting, abdominal pain, diarrhea and feeling weak for 4 weeks. Exam Limited By: Other (Lives in shelter) General Appearance: Alert, WD/WN, Mild Distress Eyes: Bilateral: Normal Appearance, EOMI Ears: Normal External Exam, Normal Canal, Hearing Grossly Normal, Normal TMs Nose: Normal Inspection, Normal Mucosa, No Blood Throat/Mouth: Normal Inspection, Normal Lips, Normal Teeth, Normal Gums, Normal Voice, No Airway Compromise, Other (mucus membranes slightly dry) Head: Atraumatic, Normocephalic. No: Facial Swelling, Facial Tenderness, Sinus Tenderness Neck: Normal Inspection, Supple, Non-Tender, Full Range of Motion. No: Lymphadenopathy (R), Lymphadenopathy (L) Respiratory/Chest: No Respiratory Distress, Normal Breath Sounds, No Accessory Muscle Use, Chest Non-Tender, Other (Breath sounds clear, decreased at the bases. ) Cardiovascular: Normal Peripheral Pulses, Regular Rate, Rhythm, No Edema, No Murmur, No Rub GI/Abdominal Exam: Normal Bowel Sounds, Soft, No Organomegaly, No Distention, No Mass, Tender, Other (Tenderness generalized with most pain to epigastric and LUQ, LLQ areas). No: Guarding, Rigid, Rebound Rectal (Female) Exam: Normal Exam, Normal Rectal Tone Back Exam: Normal Inspection, Full Range of Motion. No: CVA Tenderness (R), CVA Tenderness (L) Extremities: Normal Inspection, Normal Range of Motion, Non-Tender, No Pedal Edema, Normal Capillary Refill Neurological: Alert, Oriented, CN II-XII Intact, Normal Gait, No Motor/Sensory Deficits Psychiatric: Normal Affect, Normal Mood Skin Exam: Warm, Dry, Intact, No Rash, Other (Pale) Lymphatic: No Adenopathy EKG INTERPRETATION EKG Date: 09/26/17 Rhythm: NSR Rate (Beats/Min): 96 [place]: Normal P-Wave: Present QRS: Normal ST-T: Normal QT: Normal Course - Vital Signs Last Recorded V/S: Last Vital Signs Temp 36.7 C 09/26/17 23:30 Pulse 77 09/26/17 23:30 Resp 16 09/26/17 23:30 BP 85/50 L 09/26/17 23:30 Pulse Ox 95 09/26/17 21:34 - Orders/Labs/Meds Orders: Active Orders 24 hr Category Date Time Status Telemetry Monitoring [Cardiac Monitoring] [RC] .As Care 09/26/17 17:36 Active Directed Nothing Per Oral Diet [DIET] Diet 09/27/17 Breakfast Active Abdomen Pelvis w Cont [CT] Stat Exams 09/26/17 17:58 Taken RED BLOOD CELLS LP [BBK] Stat Lab 09/26/17 17:12 Results TYPE AND SCREEN [BBK] Stat Lab 09/26/17 17:12 Results Sodium Chloride 0.9% [Saline Flush] Med 09/26/17 17:36 Active 10 ml FLUSH ASDIRECTED PRN Transfuse Red Blood Cells [COMM] Stat Oth 09/26/17 18:01 Ordered EKG 12 Lead [EK] Routine Ther 09/26/17 17:37 Stop Req Medication Orders Albuterol (Proventil Neb Soln) 2.5 mg NEB Q4H PRN PRN Reason: Shortness Of Breath/wheezing Albuterol/Ipratropium (Duoneb 3.0-0.5 Mg/3 Ml) 3 ml NEB QID PRN PRN Reason: Shortness Of Breath/wheezing Aripiprazole (Abilify) 10 mg PO DAILY RASHAD Bupropion HCl (Wellbutrin Sr) 150 mg PO DAILY RASHAD Multivitamins/Minerals 10 ml/Thiamine HCl 100 mg/ Folic Acid 1 mg/ Magnesium Sulfate 3 gm/ Sodium Chloride 1,017.2 mls @ 999 mls/hr IV ASDIRECTED RASHAD Lorazepam (Ativan) 1 mg IV Q6H PRN PRN Reason: Nausea/Vomiting Morphine Sulfate (Morphine) 2 mg IVPUSH Q2H PRN PRN Reason: Pain (severe 7-10) Last Admin: 09/26/17 21:47 Dose: 2 mg Olanzapine (Zyprexa) 5 mg PO BID [facility] Last Admin: 09/26/17 21:47 Dose: 5 mg Ondansetron HCl (Zofran) 4 mg IV Q4H PRN PRN Reason: Nausea/Vomiting Pantoprazole Sodium (Protonix Iv) 40 mg IV BID [facility] Sodium Chloride (Saline Flush) 10 ml FLUSH ASDIRECTED PRN PRN Reason: Keep Vein Open Last Admin: 09/26/17 18:40 Dose: 10 ml Zolpidem Tartrate (Ambien) 5 mg PO BEDTIME PRN PRN Reason: Sleep Labs: Laboratory Tests 09/26/17 09/26/17 09/26/17 Range/Units 17:12 17:12 17:12 WBC (4.5-11.0) K/uL RBC (3.30-5.50) M/uL Hgb (12.0-15.0) g/dL Hct (36.0-48.0) % MCV (80-98) fL MCH (27-31) pg MCHC (32-36) % Plt Count (150-400) K/uL Neut % (Auto) (36-66) % Lymph % (Auto) (24-44) % [place] % (Auto) (2-6) % Eos % (Auto) (2-4) % Baso % (Auto) (0-1) % Sodium (140-148) mmol/L Potassium (3.6-5.2) mmol/L Chloride (100-108) mmol/L Carbon Dioxide (21-32) mmol/L Anion Gap (5.0-14.0) mmol/L BUN (7-18) mg/dL Creatinine (0.6-1.0) mg/dL Est Cr Clr Drug Dosing mL/min Estimated GFR (MDRD) (>60) Glucose (74-106) mg/dL Calcium (8.5-10.1) mg/dL Iron 18 L (50-170) ug/dL TIBC 303 (250-450) ug/dL Ferritin 9 (8-388) ng/ml Total Bilirubin (0.2-1.0) mg/dL AST (15-37) U/L ALT (12-78) U/L Alkaline Phosphatase (46-116) U/L Total Protein (6.4-8.2) g/dL Albumin (3.4-5.0) g/dL Globulin (2.3-3.5) g/dL Albumin/Globulin Ratio (1.2-2.2) Vitamin B12 593 (193-986) pg/ml Urine Color Urine Appearance Urine pH (4.5-8.0) Ur Specific [place] (1.008-1.030) Urine Protein (NEGATIVE) mg/dL Urine Glucose (UA) (NEGATIVE) mg/dL Urine Ketones (NEGATIVE) mg/dL Urine Occult Blood (NEGATIVE) Urine Nitrite (NEGATIVE) Urine Bilirubin (NEGATIVE) Urine Urobilinogen (NORMAL) mg/dL Ur Leukocyte Esterase (NEGATIVE) Urine RBC (0-5) Urine WBC (0-5) Ur Epithelial Cells Amorphous Sediment Urine Bacteria Urine Mucus Blood Type O POSITIVE Gel Antibody Screen Negative Crossmatch See Detail 09/26/17 09/26/17 09/26/17 Range/Units 17:18 17:18 17:29 WBC 3.9 L (4.5-11.0) K/uL RBC 2.67 L (3.30-5.50) M/uL Hgb 6.9 L* D (12.0-15.0) g/dL Hct 23.0 L (36.0-48.0) % MCV 86 (80-98) fL MCH 26 L (27-31) pg MCHC 30 L (32-36) % Plt Count 129 L (150-400) K/uL Neut % (Auto) 62 (36-66) % Lymph % (Auto) 28 (24-44) % [place] % (Auto) 8 H (2-6) % Eos % (Auto) 2 (2-4) % Baso % (Auto) 0 (0-1) % Sodium 140 (140-148) mmol/L Potassium 4.0 (3.6-5.2) mmol/L Chloride 106 (100-108) mmol/L Carbon Dioxide 27 (21-32) mmol/L Anion Gap 7.5 (5.0-14.0) mmol/L BUN 29 H D (7-18) mg/dL Creatinine 0.8 (0.6-1.0) mg/dL Est Cr Clr Drug Dosing 83.54 mL/min Estimated GFR (MDRD) > 60 (>60) Glucose 86 (74-106) mg/dL Calcium 8.0 L (8.5-10.1) mg/dL Iron (50-170) ug/dL TIBC (250-450) ug/dL Ferritin (8-388) ng/ml Total Bilirubin 0.2 (0.2-1.0) mg/dL AST 16 (15-37) U/L ALT 23 (12-78) U/L Alkaline Phosphatase 61 (46-116) U/L Total Protein 6.0 L (6.4-8.2) g/dL Albumin 3.3 L (3.4-5.0) g/dL Globulin 2.7 (2.3-3.5) g/dL Albumin/Globulin Ratio 1.2 (1.2-2.2) Vitamin B12 (193-986) pg/ml Urine Color Yellow Urine Appearance Clear Urine pH 5.0 (4.5-8.0) Ur Specific [place] 1.020 (1.008-1.030) Urine Protein Negative (NEGATIVE) mg/dL Urine Glucose (UA) Normal (NEGATIVE) mg/dL Urine Ketones Negative (NEGATIVE) mg/dL Urine Occult Blood Large (NEGATIVE) Urine Nitrite Negative (NEGATIVE) Urine Bilirubin Negative (NEGATIVE) Urine Urobilinogen Normal (NORMAL) mg/dL Ur Leukocyte Esterase Negative (NEGATIVE) Urine RBC 10-20 H (0-5) Urine WBC 0-5 (0-5) Ur Epithelial Cells Few Amorphous Sediment Rare Urine Bacteria Rare Urine Mucus Not seen Blood Type Gel Antibody Screen Crossmatch Meds: Medications Generic Name Dose Route Start Last Admin Trade Name Freq PRN Reason Stop Dose Admin Albuterol 2.5 mg 09/26/17 20:34 Proventil Neb Soln NEB Q4H PRN Shortness Of Breath/wheezing Albuterol/Ipratropium 3 ml 09/26/17 20:34 Duoneb 3.0-0.5 Mg/3 Ml NEB QID PRN Shortness Of Breath/wheezing Aripiprazole 10 mg 09/27/17 09:00 Abilify PO DAILY RASHAD Bupropion HCl 150 mg 09/27/17 09:00 Wellbutrin Sr PO DAILY RASHAD Multivitamins/Minerals 10 ml/ 1,017.2 mls @ 999 mls/hr 09/26/17 20:45 Thiamine HCl 100 mg/ Folic IV Acid 1 mg/ Magnesium Sulfate 3 ASDIRECTED RASHAD gm/ Sodium Chloride Lorazepam 1 mg 09/26/17 20:34 Ativan IV Q6H PRN Nausea/Vomiting Morphine Sulfate 2 mg 09/26/17 20:34 09/26/17 21:47 Morphine IVPUSH 2 mg Q2H PRN Administration Pain (severe 7-10) Olanzapine 5 mg 09/26/17 21:00 09/26/17 21:47 Zyprexa PO 5 mg BID RASHAD Administration Ondansetron HCl 4 mg 09/26/17 20:34 Zofran IV Q4H PRN Nausea/Vomiting Pantoprazole Sodium 40 mg 09/27/17 09:00 Protonix Iv IV BID RASHAD Sodium Chloride 10 ml 09/26/17 17:36 09/26/17 18:40 Saline Flush FLUSH 10 ml ASDIRECTED PRN Administration Keep Vein Open Zolpidem Tartrate 5 mg 09/26/17 20:34 Ambien PO BEDTIME PRN Sleep Discontinued Medications Generic Name Dose Route Start Last Admin Trade Name Freq PRN Reason Stop Dose Admin Acetaminophen 1,000 mg 09/26/17 18:41 09/26/17 19:08 Tylenol Extra Strength PO 09/26/17 18:42 1,000 mg ONETIME ONE Administration Folic Acid Confirm 09/26/17 23:49 Folic Acid Administered 09/26/17 23:50 Dose 50 mg .ROUTE .STK-MED ONE Sodium Chloride 1,000 mls @ 1,000 mls/hr 09/26/17 17:05 09/26/17 17:22 Normal Saline IV 09/26/17 18:04 1,000 mls/hr .BOLUS ONE Administration Sodium Chloride 1,000 mls @ 150 mls/hr 09/26/17 18:15 09/26/17 18:19 Normal Saline IV 150 mls/hr ASDIRECTED RASHAD Administration Sodium Chloride 75 mls @ 3.5 mls/sec 09/26/17 18:55 09/26/17 19:36 Normal Saline IV 09/26/17 18:56 3.5 mls/sec ONETIME ONE Administration Iohexol 20 ml 09/26/17 18:07 09/26/17 18:16 Omnipaque PO 09/26/17 18:08 20 ml ONETIME ONE Administration Iohexol 20 ml 09/26/17 18:55 09/26/17 19:36 Omnipaque PO 09/26/17 18:56 30 ml ASDIRECTED ONE Administration Iopamidol 100 ml 09/26/17 19:00 09/26/17 19:36 Isovue-300 (61%) IV 100 ml . DIRECTED RASHAD Administration Magnesium Sulfate Confirm 09/26/17 23:48 Magnesium Sulfate 50% Administered 09/26/17 23:49 Dose 1 gm .ROUTE .STK-MED ONE Multivitamins/Minerals Confirm 09/26/17 23:50 Infuvite Adult Administered 09/26/17 23:51 Dose 10 ml IV .STK-MED ONE Ondansetron HCl 4 mg 09/26/17 17:06 09/26/17 17:23 Zofran IVPUSH 09/26/17 17:07 4 mg ONETIME ONE Administration Pantoprazole Sodium 40 mg 09/26/17 18:01 09/26/17 18:16 Protonix Iv IVPUSH 09/26/17 18:02 40 mg ONETIME ONE Administration Pantoprazole Sodium 40 mg 09/27/17 06:10 Protonix Iv IV Q12H RASHAD Sodium Chloride 10 ml 09/26/17 17:05 09/26/17 17:24 Saline Flush FLUSH 10 ml ASDIRECTED PRN Administration Keep Vein Open Sodium Chloride 10 ml 09/26/17 18:55 09/26/17 19:36 Saline Flush FLUSH 09/26/17 18:56 10 ml ONETIME ONE Administration Thiamine HCl Confirm 09/26/17 23:49 Vitamin B-1 Administered 09/26/17 23:50 Dose 200 mg .ROUTE .STK-MED ONE - Re-Assessments/Exams Free Text/Narrative Re-Assessment/Exam: 09/26/17 17:40 Patient case and lab work discussed with Dr. Villagomez. GI bleed, most likely chronic in nature since patient noticed black/tar like stools 4 weeks ago. Additional lab work ordered. We will complete an abdominal/pelvis CT with oral and IV contrast if renal function is good. Patient will be admitted per Dariana Mcgowan NP 09/26/17 17:55 We will complete abdominal/pelvis CT with oral and IV contrast, additional lab work ordered. 09/26/17 18:41 Patient tolerating oral contrast. She complains of headache, we can give her acetaminophen. 09/26/17 19:41 Patient report to Dariana Mcgowan NP, patient will be admitted as inpatient for GI bleed. Departure - Departure Time of Disposition: 19:42 Disposition: Admitted As Inpatient 65 Condition: Fair Clinical Impression: GI bleed Qualifiers: GI bleed type/associated pathology: unspecified gastrointestinal hemorrhage type Qualified Code(s): K92.2 - Gastrointestinal hemorrhage, unspecified - Discharge Information - My Orders Last 24 Hours: My Active Orders 09/26/17 17:12 RED BLOOD CELLS LP [BBK] Stat TYPE AND SCREEN [BBK] Stat 09/26/17 17:36 Telemetry Monitoring [Cardiac Monitoring] [RC] .As Directed Sodium Chloride 0.9% [Saline Flush] 10 ml FLUSH ASDIRECTED PRN 09/26/17 17:37 EKG 12 Lead [EK] Routine 09/26/17 17:58 Abdomen Pelvis w Cont [CT] Stat 09/26/17 18:01 Transfuse Red Blood Cells [COMM] Stat 09/27/17 Breakfast Nothing Per Oral Diet [DIET] - Assessment/Plan Last 24 Hours: My Active Orders 09/26/17 17:12 RED BLOOD CELLS LP [BBK] Stat TYPE AND SCREEN [BBK] Stat 09/26/17 17:36 Telemetry Monitoring [Cardiac Monitoring] [RC] .As Directed Sodium Chloride 0.9% [Saline Flush] 10 ml FLUSH ASDIRECTED PRN 09/26/17 17:37 EKG 12 Lead [EK] Routine 09/26/17 17:58 Abdomen Pelvis w Cont [CT] Stat 09/26/17 18:01 Transfuse Red Blood Cells [COMM] Stat 09/27/17 Breakfast Nothing Per Oral Diet [DIET] Assessment:: GI bleed Plan: Patient will be admitted as inpatient for I bleed.
[2017-09-26] MEDS ORDERED: Pantoprazole 40 MG Vial IVPUSH ONE (18:01)
[2017-09-26] MEDS ORDERED: Iohexol 300 MG/ML 30 ML Bottle PO ONE ×2 (18:07→18:55)
[2017-09-26] MEDS ORDERED: Sodium Chloride 0.9% 1,000 ML IV SCH (18:15)
[2017-09-26] MEDS ORDERED: Acetaminophen 500 MG Tab PO ONE (18:41)
[2017-09-26] MEDS ORDERED: Sodium Chloride 0.9% 10 ML Syringe FLUSH ONE (18:55)
[2017-09-26] MEDS ORDERED: Sodium Chloride 0.9% 75 ML IV ONE (18:55)
[2017-09-26] MEDS ORDERED: Iopamidol 612 MG/ML 100 ML Bottle IV SCH (19:00)
--- NOTE | 2017-09-26 20:11 | PCM.HP ---
H&P History of Present Illness - General Admit Problem/Dx: Admission Diagnosis/Problem Admission Diagnosis/Problem Gastrointestinal hemorrhage Source of Information: Patient, Provider, RN History Limitations: Reports: No Limitations - History of Present Illness Initial Comments - Free Text/Narative: Breanna presents today for complaints of falling and hitting her head while walking. She is not sure if she had LOC or not. She states her sister was with her. She also complains of dizziness, vomiting, abdominal pain and diarrhea for 4 weeks. reports 10 pound wt loss over the past month due to daily N/V. She states black/tarry- like stools and abdominal pain that started 4 weeks ago and bloody streaked emesis over the past 2 weeks x 6 episodes. 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 Santa hx of seizure, mentally disabled no menses for 5 years, since starting Depo Provera Mcc since 2015; [place], [place]. Onset of Symptoms: Reports: Gradual Duration of Symptoms: Reports: Week(s): (4), Getting Worse Location: Reports: Abdomen Quality: Reports: Burning, Sharp Severity: Moderate Improves with: Reports: None Worsens with: Reports: None Associated Symptoms: Reports: Fever/Chills, Loss of Appetite, Nausea/Vomiting, Syncope, Weakness Bilateral Lower Abdomen Pain Score (Numeric/FACES): 7 - Related Data Allergies/Adverse Reactions: Allergies Allergy/AdvReac Type Severity Reaction Status Date / Time bee venom Allergy Other Uncoded 09/26/17 16:30 Home Medications: Home Meds ARIPiprazole [Abilify] 10 mg PO DAILY 03/21/16 [History] Cyanocobalamin (Vitamin B-12) [Vitamin B-12] 1,000 mcg PO DAILY 03/21/16 [ History] Acetaminophen [Tylenol] 650 mg PO Q4H PRN #100 tablet 05/08/16 [Rx] Ondansetron [Zofran ODT] 4 mg PO Q4H PRN #30 tab.dis 05/08/16 [Rx] Ca Carbonate/Vitamin D3/Vit K [Calcium + D Soft Chewable Tab] 1 each PO BID 04/26 [History] Cholecalciferol (Vitamin D3) [Vitamin D3] 3,000 unit PO DAILY 05/22/16 [History] Multivitamins with Iron [Child Chew Iron] 1 tab PO BID 05/22/16 [History] Multivits,Th w-Fe,Other Min [Complete Multivitamin] 1 each PO BID 05/22/16 [ History] Sennosides [Senna] 8.6 mg PO BID 05/22/16 [History] Thiamine [Vitamin B-1] 100 mg PO DAILY 06/05/16 [History] Magnesium Oxide 400 mg PO DAILY 12/21/16 [History] Sennosides/Docusate Sodium [Senokot-S Tablet] 2 each PO BEDTIME #60 tablet 12/24 [Rx] OLANZapine [ZyPREXA] 5 mg PO BID 09/26/17 [History] Omeprazole 40 mg PO DAILY 09/26/17 [History] Sertraline [Zoloft] 100 mg PO DAILY 09/26/17 [History] buPROPion HCl [Wellbutrin SR] 150 mg PO DAILY 09/26/17 [History] medroxyPROGESTERone Acetate [Depo-Provera] 1 injection IM ASDIRECTED 09/26/17 [ History] Past Medical History HEENT History: Reports: Impaired Vision Other HEENT History: wears glasses Gastrointestinal History: Reports: Bowel Obstruction, Chronic Constipation, Chronic Diarrhea, GERD, Hiatal Hernia, Other (See Below) (2016 gastric sleeve, gastrectomy. multi EGD.) APPLICATIONS ADMINISTRATOR History: Reports: Other (See Below) Other OB/BYN History: on bcp doesnt get menstrual periods Musculoskeletal History: Reports: Arthritis, Other (See Below) Other Musculoskeletal History: legs Neurological History: Reports: Seizure Other Neuro History: last seizure 12/2015 Psychiatric History: Reports: Anxiety, Bipolar, Depression, PTSD Endocrine/Metabolic History: Reports: Obesity/BMI 30+ Other Endocrine/Metabolic History: wt loss 100# Hematologic History: Reports: B12 Deficiency, Iron Deficiency - Past Surgical History GI Surgical History: Reports: Bariatric Procedure, Colonoscopy, EGD, Other (See Below) Other GI Surgeries/Procedures: GBP 8 mo ago 100 lb wt loss Social & Family History - Family History Family Medical History: Noncontributory - Tobacco Use Smoking Status *Q: Never Smoker Second Hand Smoke Exposure: No - Caffeine Use Caffeine Use: Reports: None - Recreational Drug Use Recreational Drug Use: No - Living Situation & Occupation Living situation: Reports: Single, Other ([place], [place]. [employer]) Occupation: Disabled H&P Review of Systems - Review of Systems: Review Of Systems: See Below General: Reports: Weakness, Fatigue, Decreased Appetite, Weight Loss (10 pounds in the last 4 weeks.) HEENT: Reports: No Symptoms Pulmonary: Reports: No Symptoms Cardiovascular: Reports: No Symptoms Gastrointestinal: Reports: Abdominal Pain, Black Stool, Bloody Stool, Diarrhea, Hematemesis, Nausea, Vomiting (daily for one month) Genitourinary: Reports: No Symptoms Musculoskeletal: Reports: No Symptoms Skin: Reports: Pallor Psychiatric: Reports: Other (Pre-existing condition) Neurological: Reports: No Symptoms Hematologic/Lymphatic: Reports: Anemia Immunologic: Reports: Anaphylaxis (bee) Exam - Exam Exam: See Below - Vital Signs Vital Signs: Last Vital Signs Temp 36.0 C 09/26/17 17:05 Pulse 107 H 09/26/17 17:40 Resp 18 09/26/17 17:40 BP 128/83 09/26/17 17:40 Pulse Ox 100 09/26/17 17:40 Weight: 71.214 kg - Exam General: Alert, Oriented, Cooperative HEENT: PERRLA, Conjunctiva Clear, EACs Clear, EOMI, Hearing Intact, Posterior Pharynx Clear, Pupils Equal, Pupils Reactive, TMs Clear Neck: Supple, Trachea Midline, 2 Lungs: Clear to Auscultation, Normal Respiratory Effort Cardiovascular: Regular Rate, Regular Rhythm, Normal S1, Normal S2 GI/Abdominal Exam: Normal Bowel Sounds, Soft, Tender (epigastric area) (Female) Exam: Deferred Rectal (Female) Exam: Heme + Stool Back Exam: Normal Inspection, Full Range of Motion, NT Extremities: Normal Inspection, Normal Range of Motion, Non-Tender, No Pedal Edema, Normal Capillary Refill Skin: Warm, Dry, Intact, Other (pallor) Neurological: Reflexes Equal Bilateral, Strength Equal Bilateral Neuro Extensive - Mental Status: Alert, Oriented x3, Normal Mood/Affect, Normal Cognition Neuro Extensive - Motor, Sensory, Reflexes: Normal Reflexes Psychiatric: Alert, Normal Affect, Normal Mood - Patient Data Lab Results Last 24 hrs: Laboratory Results - last 24 hr 09/26/17 09/26/17 09/26/17 Range/Units 17:12 17:12 17:12 WBC (4.5-11.0) K/uL RBC (3.30-5.50) M/uL Hgb (12.0-15.0) g/dL Hct (36.0-48.0) % MCV (80-98) fL MCH (27-31) pg MCHC (32-36) % Plt Count (150-400) K/uL Neut % (Auto) (36-66) % Lymph % (Auto) (24-44) % [place] % (Auto) (2-6) % Eos % (Auto) (2-4) % Baso % (Auto) (0-1) % Sodium (140-148) mmol/L Potassium (3.6-5.2) mmol/L Chloride (100-108) mmol/L Carbon Dioxide (21-32) mmol/L Anion Gap (5.0-14.0) mmol/L BUN (7-18) mg/dL Creatinine (0.6-1.0) mg/dL Est Cr Clr Drug Dosing mL/min Estimated GFR (MDRD) (>60) Glucose (74-106) mg/dL Calcium (8.5-10.1) mg/dL Iron 18 L (50-170) ug/dL TIBC 303 (250-450) ug/dL Ferritin 9 (8-388) ng/ml Total Bilirubin (0.2-1.0) mg/dL AST (15-37) U/L ALT (12-78) U/L Alkaline Phosphatase (46-116) U/L Total Protein (6.4-8.2) g/dL Albumin (3.4-5.0) g/dL Globulin (2.3-3.5) g/dL Albumin/Globulin Ratio (1.2-2.2) Vitamin B12 593 (193-986) pg/ml Urine Color Urine Appearance Urine pH (4.5-8.0) Ur Specific Call (1.008-1.030) Urine Protein (NEGATIVE) mg/dL Urine Glucose (UA) (NEGATIVE) mg/dL Urine Ketones (NEGATIVE) mg/dL Urine Occult Blood (NEGATIVE) Urine Nitrite (NEGATIVE) Urine Bilirubin (NEGATIVE) Urine Urobilinogen (NORMAL) mg/dL Ur Leukocyte Esterase (NEGATIVE) Urine RBC (0-5) Urine WBC (0-5) Ur Epithelial Cells Amorphous Sediment Urine Bacteria Urine Mucus Blood Type O POSITIVE Gel Antibody Screen Negative Crossmatch See Detail 09/26/17 09/26/17 09/26/17 Range/Units 17:18 17:18 17:29 WBC 3.9 L (4.5-11.0) K/uL RBC 2.67 L (3.30-5.50) M/uL Hgb 6.9 L* D (12.0-15.0) g/dL Hct 23.0 L (36.0-48.0) % MCV 86 (80-98) fL MCH 26 L (27-31) pg MCHC 30 L (32-36) % Plt Count 129 L (150-400) K/uL Neut % (Auto) 62 (36-66) % Lymph % (Auto) 28 (24-44) % [place] % (Auto) 8 H (2-6) % Eos % (Auto) 2 (2-4) % Baso % (Auto) 0 (0-1) % Sodium 140 (140-148) mmol/L Potassium 4.0 (3.6-5.2) mmol/L Chloride 106 (100-108) mmol/L Carbon Dioxide 27 (21-32) mmol/L Anion Gap 7.5 (5.0-14.0) mmol/L BUN 29 H D (7-18) mg/dL Creatinine 0.8 (0.6-1.0) mg/dL Est Cr Clr Drug Dosing 83.54 mL/min Estimated GFR (MDRD) > 60 (>60) Glucose 86 (74-106) mg/dL Calcium 8.0 L (8.5-10.1) mg/dL Iron (50-170) ug/dL TIBC (250-450) ug/dL Ferritin (8-388) ng/ml Total Bilirubin 0.2 (0.2-1.0) mg/dL AST 16 (15-37) U/L ALT 23 (12-78) U/L Alkaline Phosphatase 61 (46-116) U/L Total Protein 6.0 L (6.4-8.2) g/dL Albumin 3.3 L (3.4-5.0) g/dL Globulin 2.7 (2.3-3.5) g/dL Albumin/Globulin Ratio 1.2 (1.2-2.2) Vitamin B12 (193-986) pg/ml Urine Color Yellow Urine Appearance Clear Urine pH 5.0 (4.5-8.0) Ur Specific Call 1.020 (1.008-1.030) Urine Protein Negative (NEGATIVE) mg/dL Urine Glucose (UA) Normal (NEGATIVE) mg/dL Urine Ketones Negative (NEGATIVE) mg/dL Urine Occult Blood Large (NEGATIVE) Urine Nitrite Negative (NEGATIVE) Urine Bilirubin Negative (NEGATIVE) Urine Urobilinogen Normal (NORMAL) mg/dL Ur Leukocyte Esterase Negative (NEGATIVE) Urine RBC 10-20 H (0-5) Urine WBC 0-5 (0-5) Ur Epithelial Cells Few Amorphous Sediment Rare Urine Bacteria Rare Urine Mucus Not seen Blood Type Gel Antibody Screen Crossmatch Result Diagrams: 09/26/17 17:18 09/26/17 17:18 Neal Results Last 24 hrs: Microbiology 09/26/17 17:24 Stool Occult Blood (NEAL) - Final Stool / Feces EKG INTERPRETATION Rhythm: NSR - Problem List (1) GI bleed SNOMED Code(s): 21401410 ICD Code: K92.2 - GASTROINTESTINAL HEMORRHAGE, UNSPECIFIED Status: Acute Priority: High Current Visit: Yes Qualifiers: GI bleed type/associated pathology: unspecified gastrointestinal hemorrhage type Qualified Code(s): K92.2 - Gastrointestinal hemorrhage, unspecified (2) Abdominal pain SNOMED Code(s): 24991063 ICD Code: R10.9 - UNSPECIFIED ABDOMINAL PAIN Status: Acute Priority: High Current Visit: Yes Qualifiers: Abdominal location: unspecified location Qualified Code(s): R10.9 - Unspecified abdominal pain (3) History of sleeve gastrectomy SNOMED Code(s): 631636436 ICD Code: Z90.3 - ACQUIRED ABSENCE OF STOMACH [PART OF] Status: Chronic Priority: High Current Visit: Yes Problem List Initiated/Reviewed/Updated: Yes Orders Last 24hrs: Active Orders 24 hr Category Date Time Status Patient Status Manage Transfer [TRANSFER] Routine ADT 09/26/17 19:32 Active EKG Documentation Completion [RC] ASDIRECTED Care 09/26/17 17:37 Active Telemetry Monitoring [Cardiac Monitoring] [RC] .As Care 09/26/17 17:36 Active Directed Nothing Per Oral Diet [DIET] Diet 09/27/17 Breakfast Active Abdomen Pelvis w Cont [CT] Stat Exams 09/26/17 17:58 Taken OCCULT BLOOD DIAGNOSTIC [OP] Stat Lab 09/26/17 17:24 Ordered RED BLOOD CELLS LP [BBK] Stat Lab 09/26/17 17:12 Results TYPE AND SCREEN [BBK] Stat Lab 09/26/17 17:12 Results UA W/MICROSCOPIC [URIN] Stat Lab 09/26/17 17:29 Ordered Iopamidol [Isovue-300 (61%)] Med 09/26/17 19:00 Active 100 ml IV . DIRECTED Sodium Chloride 0.9% [Normal Saline] 1,000 ml Med 09/26/17 18:15 Active IV ASDIRECTED Sodium Chloride 0.9% [Saline Flush] Med 09/26/17 17:05 Active 10 ml FLUSH ASDIRECTED PRN Sodium Chloride 0.9% [Saline Flush] Med 09/26/17 17:36 Active 10 ml FLUSH ASDIRECTED PRN Saline Lock Insert [OM.PC] Routine Oth 09/26/17 17:05 Ordered Saline Lock Insert [OM.PC] Routine Oth 09/26/17 17:36 Ordered Transfuse Red Blood Cells [COMM] Stat Oth 09/26/17 18:01 Ordered Resuscitation Status Routine Resus Stat 09/26/17 19:38 Ordered EKG 12 Lead [EK] Routine Ther 09/26/17 17:37 Ordered Medication Orders Sodium Chloride (Normal Saline) 1,000 mls @ 150 mls/hr IV ASDIRECTED RASHAD Last Admin: 09/26/17 18:19 Dose: 150 mls/hr Iopamidol (Isovue-300 (61%)) 100 ml IV . DIRECTED [facility] Last Admin: 09/26/17 19:36 Dose: 100 ml Sodium Chloride (Saline Flush) 10 ml FLUSH ASDIRECTED PRN PRN Reason: Keep Vein Open Last Admin: 09/26/17 17:24 Dose: 10 ml Sodium Chloride (Saline Flush) 10 ml FLUSH ASDIRECTED PRN PRN Reason: Keep Vein Open Last Admin: 09/26/17 18:40 Dose: 10 ml Assessment/Plan Comment:: ASSESSMENT / PLAN -arrived by EMS, Breanna presents today for complaints of falling and hitting her head while walking. She is not sure if she had LOC or not. She states her sister was with her. She also complains of dizziness, vomiting, abdominal pain and diarrhea for 4 weeks. reports 10 pound wt loss over the past month due to daily nausea and vomiting . She states black/tarry- like stools and abdominal pain that started 4 weeks ago and bloody streaked emesis over the past 2 weeks x 6 episodes. Exam notes a mentally disabled adult female, abdomen tender more pronounced epigastric area. labs; CBC WBC 3.9, hemoglobin 6.9, hematocrit 23, platelets 129. Chemistries sodium 140, potassium 4.0, chloride 106, iron gap 7.5, BU and 29, creatinine 0.8 , glucose 86. Urine negative, iron 18, TIBC 303, ferritin 9, fecal occult stool positive Abdomen pelvis CT with and without oral contrast: Represent postsurgical changes within the abdomen. Scattered gas and stool throughout the portion: The rectum. This may reflect some degree of constipation. Please correlate clinically. No bowel obstruction or free air. No ascites or lymphadenopathy. Consulted with Dr. Villagomez and Dr. Harman, will admit to hospital for further care and treatment. She will have a blood transfusion 2 units packed red blood cells tonight, IV fluids, IV banana bag, and was a planned EGD at 0900 tomorrow. Spine Surgeon to coordinate Surgery Personnel and time for 0900 surgery Gastrointestinal hemorrhage hx of gastric sleeve, gastrectomy 2015 -Admit to [address] [place] [address] for further monitoring -Consult to Dr. Harman, schedule for EGD tomorrow 0900, banana bag 1liter, keep NPO. -IV Fluids for rehydration NS at 125 mL per hour -IV Banana bag 1 liter x1 -Blood Products; 2 units PRBC today, recheck CBC in am -IV Morphine for pain control -Advise to notify nurses of any chest pain or other symptoms -And a.m. labs: CBC, BMP Maintenance issues -Orders home meds: hold -Nutrition: NPO diet -Matthews catheter not indicated at this time -DVT: SCD -PPI: IV Protonix 40mg every 12 hours CODE STATUS: FULL CODE Admission status: Admit to [address] [place] [address] Admission justification. This patient will be admitted for inpatient services and is medically appropriate meeting medical necessity for inpatient admission as outlined in my documentation. I reasonably expect the patient will require inpatient services that span. Time over 2 midnights. I reasonably expect this patient to be discharged or transferred within 96 hours after admission to the critical access hospital. Disposition: [facility] half-way Primary care provider: [facility], Dr. Selin Carreon. Hospitalist: Dr. Villagomez Surgeon: Dr. Harman
[2017-09-26] MEDS ORDERED: Albuterol 0.083% 2.5 MG/3 ML Neb Soln NEB PRN (20:34)
[2017-09-26] MEDS ORDERED: LORazepam 2 MG/ML SDV IV PRN (20:34)
[2017-09-26] MEDS ORDERED: Zolpidem 5 MG Tab PO PRN (20:34)
[2017-09-26] MEDS ORDERED: Albuterol/Ipratropium 3.0-0.5 MG/3 ML Neb Soln NEB PRN (20:34)
[2017-09-26] MEDS ORDERED: Ondansetron 4 MG/2 ML SDV IV PRN (20:34)
[2017-09-26] MEDS ORDERED: MVI, Adult with Vitamin K 10 ML, Thiamine 100 MG, Folic Acid 1 MG, Magnesium Sulfate 3 ... IV SCH ×5 (20:45)
[2017-09-26] MEDS: Morphine 2 MG/ML Syringe IVPUSH PRN (21:47)
[2017-09-26] MEDS: OLANZapine 5 MG Tab PO SCH (21:47)
[2017-09-27] MEDS: Folic Acid 50 MG/10 ML MDV ONE ×2 (03:01→03:18)
[2017-09-27] MEDS: Thiamine 200 MG/2 ML MDV ONE ×2 (03:01→03:18)
[2017-09-27] MEDS: MVI, Adult with Vitamin K 10 ML SDV IV ONE ×2 (03:02→03:18)
[2017-09-27] MEDS: Magnesium Sulfate (4.06 MEQ/ML) 1 GM/2 ML SDV ONE ×2 (03:02→03:18)
[2017-09-27] MEDS ORDERED: Sodium Chloride 0.9% 1,000 ML IV SCH (03:30)
[2017-09-27] MEDS: Morphine 2 MG/ML Syringe IVPUSH PRN ×2 (03:52→06:18)
[2017-09-27] MEDS ORDERED: Pantoprazole 40 MG Vial IV SCH ×2 (06:10→09:00)
[2017-09-27] MEDS ORDERED: Propofol 200 MG/20 ML SDV ONE (08:54)
[2017-09-27] MEDS ORDERED: Midazolam 1 MG/ML 2 ML SDV ONE (08:55)
[2017-09-27] MEDS ORDERED: fentaNYL 100 MCG/2 ML SDV ONE (08:55)
[2017-09-27] MEDS ORDERED: buPROPion 150 MG Tab.SR PO SCH (09:00)
[2017-09-27] MEDS: OLANZapine 5 MG Tab PO SCH ×2 (10:37→21:02)
[2017-09-27] MEDS: ARIPiprazole 10 MG Tab PO SCH (10:37)
[2017-09-27] MEDS: buPROPion 150 MG Tab.ER PO SCH (10:37)
--- NOTE | 2017-09-27 12:44 | PCM.PN ---
- General Info Date of Service: 09/27/17 Subjective Update: Ms. Malave is a 26-year-old woman who was admitted through the emergency department with acute on chronic anemia secondary to GI blood loss as well as epigastric abdominal pain. CT scan of the abdomen was obtained in the emergency department and showed no acute abnormalities to explain her pain. Hemoglobin on presentation was low at 6.9 and she has received 2 units of red blood cells, hemoglobin is now up to 8.5. She gives a history of one month of melenic- appearing stools. EGD was performed this morning by Dr. Harman and did show an area of potential bleeding within the stomach, but no evidence of acute bleeding at this time. - Review of Systems General: Reports: No Symptoms Pulmonary: Reports: No Symptoms Cardiovascular: Reports: No Symptoms Gastrointestinal: Reports: Abdominal Pain, Melena. Denies: Constipation, Diarrhea, Difficulty Swallowing, Nausea, Vomiting - Patient Data Vitals - Most Recent: Last Vital Signs Temp 97.5 F 09/27/17 12:33 Pulse 59 L 09/27/17 12:34 Resp 16 09/27/17 12:34 BP 107/58 L 09/27/17 12:34 Pulse Ox 96 09/27/17 12:34 Weight - Most Recent: 157 lb I&O - Last 24 Hours: Intake & Output 09/26/17 09/27/17 09/27/17 22:59 06:59 14:59 Intake Total 0 1890 Output Total 1000 500 Balance 0 890 -500 Lab Results Last 24 Hours: Laboratory Results - last 24 hr 09/26/17 09/26/17 09/26/17 Range/Units 17:12 17:12 17:12 WBC (4.5-11.0) K/uL RBC (3.30-5.50) M/uL Hgb (12.0-15.0) g/dL Hct (36.0-48.0) % MCV (80-98) fL MCH (27-31) pg MCHC (32-36) % Plt Count (150-400) K/uL Neut % (Auto) (36-66) % Lymph % (Auto) (24-44) % [place] % (Auto) (2-6) % Eos % (Auto) (2-4) % Baso % (Auto) (0-1) % PT (9.5-12.0) sec INR (0.80-1.20) Sodium (140-148) mmol/L Potassium (3.6-5.2) mmol/L Chloride (100-108) mmol/L Carbon Dioxide (21-32) mmol/L Anion Gap (5.0-14.0) mmol/L BUN (7-18) mg/dL Creatinine (0.6-1.0) mg/dL Est Cr Clr Drug Dosing mL/min Estimated GFR (MDRD) (>60) Glucose (74-106) mg/dL Calcium (8.5-10.1) mg/dL Iron 18 L (50-170) ug/dL TIBC 303 (250-450) ug/dL Ferritin 9 (8-388) ng/ml Total Bilirubin (0.2-1.0) mg/dL AST (15-37) U/L ALT (12-78) U/L Alkaline Phosphatase (46-116) U/L Total Protein (6.4-8.2) g/dL Albumin (3.4-5.0) g/dL Globulin (2.3-3.5) g/dL Albumin/Globulin Ratio (1.2-2.2) Vitamin B12 593 (193-986) pg/ml Urine Color Urine Appearance Urine pH (4.5-8.0) Ur Specific [place] (1.008-1.030) Urine Protein (NEGATIVE) mg/dL Urine Glucose (UA) (NEGATIVE) mg/dL Urine Ketones (NEGATIVE) mg/dL Urine Occult Blood (NEGATIVE) Urine Nitrite (NEGATIVE) Urine Bilirubin (NEGATIVE) Urine Urobilinogen (NORMAL) mg/dL Ur Leukocyte Esterase (NEGATIVE) Urine RBC (0-5) Urine WBC (0-5) Ur Epithelial Cells Amorphous Sediment Urine Bacteria Urine Mucus Blood Type O POSITIVE Gel Antibody Screen Negative Crossmatch See Detail 09/26/17 09/26/17 09/26/17 Range/Units 17:18 17:18 17:29 WBC 3.9 L (4.5-11.0) K/uL RBC 2.67 L (3.30-5.50) M/uL Hgb 6.9 L* D (12.0-15.0) g/dL Hct 23.0 L (36.0-48.0) % MCV 86 (80-98) fL MCH 26 L (27-31) pg MCHC 30 L (32-36) % Plt Count 129 L (150-400) K/uL Neut % (Auto) 62 (36-66) % Lymph % (Auto) 28 (24-44) % [place] % (Auto) 8 H (2-6) % Eos % (Auto) 2 (2-4) % Baso % (Auto) 0 (0-1) % PT (9.5-12.0) sec INR (0.80-1.20) Sodium 140 (140-148) mmol/L Potassium 4.0 (3.6-5.2) mmol/L Chloride 106 (100-108) mmol/L Carbon Dioxide 27 (21-32) mmol/L Anion Gap 7.5 (5.0-14.0) mmol/L BUN 29 H D (7-18) mg/dL Creatinine 0.8 (0.6-1.0) mg/dL Est Cr Clr Drug Dosing 83.54 mL/min Estimated GFR (MDRD) > 60 (>60) Glucose 86 (74-106) mg/dL Calcium 8.0 L (8.5-10.1) mg/dL Iron (50-170) ug/dL TIBC (250-450) ug/dL Ferritin (8-388) ng/ml Total Bilirubin 0.2 (0.2-1.0) mg/dL AST 16 (15-37) U/L ALT 23 (12-78) U/L Alkaline Phosphatase 61 (46-116) U/L Total Protein 6.0 L (6.4-8.2) g/dL Albumin 3.3 L (3.4-5.0) g/dL Globulin 2.7 (2.3-3.5) g/dL Albumin/Globulin Ratio 1.2 (1.2-2.2) Vitamin B12 (193-986) pg/ml Urine Color Yellow Urine Appearance Clear Urine pH 5.0 (4.5-8.0) Ur Specific [place] 1.020 (1.008-1.030) Urine Protein Negative (NEGATIVE) mg/dL Urine Glucose (UA) Normal (NEGATIVE) mg/dL Urine Ketones Negative (NEGATIVE) mg/dL Urine Occult Blood Large (NEGATIVE) Urine Nitrite Negative (NEGATIVE) Urine Bilirubin Negative (NEGATIVE) Urine Urobilinogen Normal (NORMAL) mg/dL Ur Leukocyte Esterase Negative (NEGATIVE) Urine RBC 10-20 H (0-5) Urine WBC 0-5 (0-5) Ur Epithelial Cells Few Amorphous Sediment Rare Urine Bacteria Rare Urine Mucus Not seen Blood Type Gel Antibody Screen Crossmatch 09/27/17 09/27/17 09/27/17 Range/Units 06:00 06:00 06:00 WBC 3.1 L (4.5-11.0) K/uL RBC 3.10 L (3.30-5.50) M/uL Hgb 8.6 L (12.0-15.0) g/dL Hct 26.3 L (36.0-48.0) % MCV 85 (80-98) fL MCH 28 (27-31) pg MCHC 33 (32-36) % Plt Count 102 L (150-400) K/uL Neut % (Auto) 40 (36-66) % Lymph % (Auto) 49 H (24-44) % [place] % (Auto) 7 H (2-6) % Eos % (Auto) 3 (2-4) % Baso % (Auto) 1 (0-1) % PT 10.4 (9.5-12.0) sec INR 0.97 (0.80-1.20) Sodium 140 (140-148) mmol/L Potassium 3.9 (3.6-5.2) mmol/L Chloride 109 H (100-108) mmol/L Carbon Dioxide 25 (21-32) mmol/L Anion Gap 9.9 (5.0-14.0) mmol/L BUN 18 (7-18) mg/dL Creatinine 0.7 (0.6-1.0) mg/dL Est Cr Clr Drug Dosing 95.48 mL/min Estimated GFR (MDRD) > 60 (>60) Glucose 86 (74-106) mg/dL Calcium 7.5 L (8.5-10.1) mg/dL Iron (50-170) ug/dL TIBC (250-450) ug/dL Ferritin (8-388) ng/ml Total Bilirubin (0.2-1.0) mg/dL AST (15-37) U/L ALT (12-78) U/L Alkaline Phosphatase (46-116) U/L Total Protein (6.4-8.2) g/dL Albumin (3.4-5.0) g/dL Globulin (2.3-3.5) g/dL Albumin/Globulin Ratio (1.2-2.2) Vitamin B12 (193-986) pg/ml Urine Color Urine Appearance Urine pH (4.5-8.0) Ur Specific [place] (1.008-1.030) Urine Protein (NEGATIVE) mg/dL Urine Glucose (UA) (NEGATIVE) mg/dL Urine Ketones (NEGATIVE) mg/dL Urine Occult Blood (NEGATIVE) Urine Nitrite (NEGATIVE) Urine Bilirubin (NEGATIVE) Urine Urobilinogen (NORMAL) mg/dL Ur Leukocyte Esterase (NEGATIVE) Urine RBC (0-5) Urine WBC (0-5) Ur Epithelial Cells Amorphous Sediment Urine Bacteria Urine Mucus Blood Type Gel Antibody Screen Crossmatch Neal Results Last 24 Hours: Microbiology 09/26/17 17:24 Stool Occult Blood (NEAL) - Final Stool / Feces Med Orders - Current: Current Medications Albuterol (Proventil Neb Soln) 2.5 mg NEB Q4H PRN PRN Reason: Shortness Of Breath/wheezing Albuterol/Ipratropium (Duoneb 3.0-0.5 Mg/3 Ml) 3 ml NEB QID PRN PRN Reason: Shortness Of Breath/wheezing Aripiprazole (Abilify) 10 mg PO DAILY [facility] Last Admin: 09/27/17 10:37 Dose: 10 mg Bupropion HCl (Wellbutrin Xl) 150 mg PO DAILY [facility] Last Admin: 09/27/17 10:37 Dose: 150 mg Multivitamins/Minerals 10 ml/Thiamine HCl 100 mg/ Folic Acid 1 mg/ Magnesium Sulfate 3 gm/ Sodium Chloride 1,017.2 mls @ 500 mls/hr IV ASDIRECTED [facility] Last Admin: 09/27/17 02:45 Dose: 999 mls/hr Lorazepam (Ativan) 1 mg IV Q6H PRN PRN Reason: Nausea/Vomiting Morphine Sulfate (Morphine) 2 mg IVPUSH Q2H PRN PRN Reason: Pain (severe 7-10) Last Admin: 09/27/17 06:18 Dose: 2 mg Olanzapine (Zyprexa) 5 mg PO BID [facility] Last Admin: 09/27/17 10:37 Dose: 5 mg Ondansetron HCl (Zofran) 4 mg IV Q4H PRN PRN Reason: Nausea/Vomiting Pantoprazole Sodium (Protonix) 40 mg PO BIDAC [facility] Sodium Chloride (Saline Flush) 10 ml FLUSH ASDIRECTED PRN PRN Reason: Keep Vein Open Last Admin: 09/26/17 18:40 Dose: 10 ml Zolpidem Tartrate (Ambien) 5 mg PO BEDTIME PRN PRN Reason: Sleep Discontinued Medications Acetaminophen (Tylenol Extra Strength) 1,000 mg PO ONETIME ONE Stop: 09/26/17 18:42 Last Admin: 09/26/17 19:08 Dose: 1,000 mg Fentanyl (Sublimaze) Confirm Administered Dose 100 mcg .ROUTE .STK-MED ONE Stop: 09/27/17 08:56 Folic Acid (Folic Acid) Confirm Administered Dose 50 mg .ROUTE .STK-MED ONE Stop: 09/26/17 23:50 Last Admin: 09/27/17 03:18 Dose: Not Given Sodium Chloride (Normal Saline) 1,000 mls @ 1,000 mls/hr IV .BOLUS ONE Stop: 09/26/17 18:04 Last Admin: 09/26/17 17:22 Dose: 1,000 mls/hr Sodium Chloride (Normal Saline) 1,000 mls @ 150 mls/hr IV ASDIRECTED [facility] Last Admin: 09/26/17 18:19 Dose: 150 mls/hr Sodium Chloride (Normal Saline) 75 mls @ 3.5 mls/sec IV ONETIME ONE Stop: 09/26/17 18:56 Last Admin: 09/26/17 19:36 Dose: 3.5 mls/sec Sodium Chloride (Normal Saline) 1,000 mls @ 125 mls/hr IV ASDIRECTED [facility] Last Admin: 09/27/17 03:43 Dose: 125 mls/hr Iohexol (Omnipaque) 20 ml PO ONETIME ONE Stop: 09/26/17 18:08 Last Admin: 09/26/17 18:16 Dose: 20 ml Iohexol (Omnipaque) 20 ml PO ASDIRECTED ONE Stop: 09/26/17 18:56 Last Admin: 09/26/17 19:36 Dose: 30 ml Iopamidol (Isovue-300 (61%)) 100 ml IV . DIRECTED [facility] Last Admin: 09/26/17 19:36 Dose: 100 ml Magnesium Sulfate (Magnesium Sulfate 50%) Confirm Administered Dose 1 gm .ROUTE .STK-MED ONE Stop: 09/26/17 23:49 Last Admin: 09/27/17 03:18 Dose: Not Given Midazolam HCl (Versed 1 Mg/Ml) Confirm Administered Dose 2 mg .ROUTE .STK-MED ONE Stop: 09/27/17 08:56 Multivitamins/Minerals (Infuvite Adult) Confirm Administered Dose 10 ml IV .STK- MED ONE Stop: 09/26/17 23:51 Last Admin: 09/27/17 03:18 Dose: Not Given Ondansetron HCl (Zofran) 4 mg IVPUSH ONETIME ONE Stop: 09/26/17 17:07 Last Admin: 09/26/17 17:23 Dose: 4 mg Pantoprazole Sodium (Protonix Iv) 40 mg IVPUSH ONETIME ONE Stop: 09/26/17 18:02 Last Admin: 09/26/17 18:16 Dose: 40 mg Pantoprazole Sodium (Protonix Iv) 40 mg IV Q12H RASHAD Pantoprazole Sodium (Protonix Iv) 40 mg IV BID RASHAD Last Admin: 09/27/17 10:37 Dose: 40 mg Propofol (Diprivan 20 Ml) Confirm Administered Dose 200 mg .ROUTE .STK-MED ONE Stop: 09/27/17 08:55 Sodium Chloride (Saline Flush) 10 ml FLUSH ASDIRECTED PRN PRN Reason: Keep Vein Open Last Admin: 09/26/17 17:24 Dose: 10 ml Sodium Chloride (Saline Flush) 10 ml FLUSH ONETIME ONE Stop: 09/26/17 18:56 Last Admin: 09/26/17 19:36 Dose: 10 ml Thiamine HCl (Vitamin B-1) Confirm Administered Dose 200 mg .ROUTE .STK-MED ONE Stop: 09/26/17 23:50 Last Admin: 09/27/17 03:18 Dose: Not Given - Exam General: Alert, Oriented, Cooperative, No Acute Distress Lungs: Clear to Auscultation, Normal Respiratory Effort Cardiovascular: Regular Rate, Regular Rhythm, No Murmurs GI/Abdominal Exam: Soft, No Organomegaly, Tender. No: Distended, Guarding, Rigid, Rebound Extremities: Non-Tender, No Pedal Edema Skin: Warm, Dry, Intact - Problem List Review Problem List Initiated/Reviewed/Updated: Yes - My Orders Last 24 Hours: My Active Orders 09/27/17 12:34 Convert IV to Saline Lock [OM.PC] Routine 09/27/17 16:30 Pantoprazole [ProTONIX] 40 mg PO BIDAC 09/27/17 17:00 HGB [HEMOGLOBIN] [HEME] Stat 09/27/17 Dinner GI Soft Low Fiber [Soft Diet] [DIET] 09/28/17 05:00 CBC WITH AUTO DIFF [HEME] Timed - Plan Plan:: ASSESSMENT / PLAN Upper GI bleed-history of previous Cristina-en-Y gastric bypass surgery. Over the past month has had melenic-appearing stools, yesterday experience significant lightheadedness and a fall. Hemoglobin on initial presentation was low at 6.9, also found to have low iron level. EGD this morning showed area of potential bleed in the stomach, with no evidence of active bleeding. -Surgical follow-up per Dr. Harman and Dr. Santa -Saline lock IV -Soft diet low residue -Recheck hemoglobin later today and again in a.m. -Protonix 40 mg by mouth twice a day Acute on chronic blood loss anemia-with apparent iron deficiency and low iron level. Secondary to ongoing chronic GI blood loss, likely from the stomach. Hemoglobin level improved following transfusion of 2 units of red blood cells -Serial hemoglobin levels as above -IV iron today and tomorrow Maintenance issues -Nutrition: NPO diet -Matthews catheter not indicated at this time -DVT: SCD -PPI: IV Protonix 40mg every 12 hours CODE STATUS: FULL CODE Admission status: Admit to [address] [place] [address]. This patient will be admitted for inpatient services and is medically appropriate meeting medical necessity for inpatient admission as outlined in my documentation. I reasonably expect the patient will require inpatient services that span. Time over 2 midnights. I reasonably expect this patient to be discharged or transferred within 96 hours after admission to the [facility]. Disposition: [facility] Primary care provider: Tata Duvall, Dr. Selin Carreon. Hospitalist: Dr. Villagomez Surgeon: Dr. Harman
[2017-09-27] MEDS ORDERED: buPROPion 150 MG Tab.ER PO SCH (12:45)
[2017-09-27] MEDS ORDERED: Non-Formulary Medication 1 Each (Sertraline [Zoloft] 100 MG) PO SCH (12:45)
[2017-09-27] MEDS ORDERED: Sodium Ferric Gluconate Cmplex 250 MG in Sodium Chloride 0.9% 100 ML IV ONE (13:30)
[2017-09-27] MEDS: Sertraline 50 MG Tab PO SCH (14:28)
[2017-09-27] MEDS: Magnesium Oxide 400 MG Tab PO SCH (14:29)
[2017-09-27] MEDS: Pantoprazole 40 MG Tab.CR PO SCH (17:36)
[2017-09-28 07:02] VITALS: BP 114/66
[2017-09-28] MEDS: Pantoprazole 40 MG Tab.CR PO SCH (07:10)
[2017-09-28] MEDS: Sodium Ferric Gluconate Cmplex 250 MG in Sodium Chloride 0.9% 100 ML IV ONE ×2 (07:54→08:20)
[2017-09-28] MEDS: OLANZapine 5 MG Tab PO SCH (08:20)
[2017-09-28] MEDS: buPROPion 150 MG Tab.ER PO SCH (08:20)
[2017-09-28] MEDS: Sertraline 50 MG Tab PO SCH (08:20)
[2017-09-28] MEDS: Magnesium Oxide 400 MG Tab PO SCH (08:20)
[2017-09-28] MEDS: ARIPiprazole 10 MG Tab PO SCH (08:20)
--- NOTE | 2017-09-28 15:16 | DISCH ---
ADMISSION DIAGNOSES: 1. Gastrointestinal bleed, hemoglobin 6.9. 2. Status post Cristina-en-Y gastric bypass surgery. 3. Unspecified surgical malabsorption. 4. B12 deficiency. 5. Black tarry stools for 1 month prior to admission without telling anyone. 6. Anxiety and depression. 7. Bipolar. 8. History of seizures. Last seizure was 12/2015. 9. Arthritis. 10.Chronic constipation. 11.Iron deficiency anemia. DISCHARGE DIAGNOSES: 1. Status post EGD, Dr. Dutch Harman, 09/26/2017. 2. Gastrointestinal bleed, unknown source. 3. 2 units of packed red blood cells. 4. Low ferritin, 9, with iron infusion replacement. HISTORY: Breanna Malave is a 26-year-old female who lives with her sister and passed out. She was brought to the emergency department in [place] and was found to have a hemoglobin of 6.9. She received 2 units of packed red blood cells. EGD was done and it was negative. She received 2 iron infusions. Appetite was increased to a soft solid. She states she felt good and wanted to be discharged to home, after her last iron infusion, and wants to go to work this afternoon from 3 to 8. Prior to admission, she states she has had black tarry stools for about a month, and she did not tell anyone. She had been taking quite a bit in the form of ibuprofen until approximately 2 weeks ago. REVIEW OF SYSTEMS: HEENT: Negative. NECK: Negative. CHEST: No chest pain, shortness of breath, fast or irregular heartbeats. LUNGS: No cough. ABDOMEN: Denies any abdominal pain. No heartburn, nausea, vomiting, diarrhea, or constipation. Has not had a bowel movement since she has been here. : Negative. EXTREMITIES: Without joint pain or swelling. SKIN: Without rash. PSYCHIATRIC: Negative for any depression or anxiety. States she has been feeling good and is excited about her new job. She is working 2 new jobs, one at [employer] and the other at [employer]. SKIN: Without rash. PHYSICAL EXAMINATION: GENERAL: Breanna Malave is a 26-year-old female. VITAL SIGNS: Height is 5 feet 2 inches. Weight is 157. TPR is 98.6, 80, 16, and blood pressure 114/66. HEENT: Negative. NECK: Supple. HEART: Regular rate and rhythm. LUNGS: Clear. ABDOMEN: Soft and nontender. EXTREMITIES: Without peripheral edema. DISPOSITION: Discharged to home. CONDITION: Stable and improving. FOLLOWUP APPOINTMENT: With Sakina Hernandez PA-C, on 10/01/2017 at 10 a.m. DISCHARGE MEDICATIONS: New prescriptions, Carafate 1 gram oral before meals and at bedtime, 120, with 5 refills. She is to resume her home medications. Her insurance will only pay for Protonix 40 mg, she is to take one a day at bedtime. Discontinue taking ibuprofen, Aleve, Advil . Home medications; 1. . 2. Tylenol 650 mg oral every 4 hours. 3. Calcium with vitamin D chewable one twice daily. 4. Vitamin D3 3000 International Units daily. 5. B12 1000 mcg oral daily. 6. Magnesium oxide 400 mg oral daily. 7. Multivitamin chewable b.i.d. 8. Zyprexa 5 mg b.i.d. 9. Omeprazole 40 mg oral daily. 10.Zofran ODT 4 mg every 4 hours. 11.Senna 8.6 mg twice daily. 12.Senna-S 2 tablets at bedtime. 13.Sertraline 100 mg oral daily. 14.Thiamine B1 100 mg daily. 15.Bupropion 150 mg oral daily. 16.Depo-Provera as directed every 90 days. DIET: GI soft, low-residue diet. Drink 8 to 10 glasses of water a day. ACTIVITY: As tolerated. May shower. DISCHARGE INSTRUCTIONS: Notify provider if any increased pain, nausea or vomiting, red or black stools. Note written, Breanna Malave is under my care and unable to work until 09/28/2017. Breanna was in the hospital for medical care from 09/26/2017 until discharge on 09/28/2017.
--- NOTE | 2017-10-09 11:22 | OR ---
DATE OF PROCEDURE: 09/28/2017 PROCEDURE: EGD. FINDINGS: Normal Cristina-en-Y. PREOPERATIVE DIAGNOSIS: Gastrointestinal bleeding. POSTOPERATIVE DIAGNOSIS: Gastrointestinal bleeding. RISKS: Risks, benefits, alternatives, and limitations including, but not limited to infection, bleeding, and perforation were explained to the patient, who wished to proceed. PROCEDURE IN DETAIL: The patient was placed in left lateral decubitus position. The scope was introduced and advanced atraumatically into the Cristina-en-Y limb. No evidence of narrowing, stricturing, or abnormality were noted. The Cristina-en-Y pouch was appropriately sized. No evidence of bleeding or ulceration. No old or new blood. The esophagus was normal. The patient tolerated the procedure well. Dutch Harman MD /[id number]
== END 2017-09-28 11:25 | disposition home or self-care (01) | DRG 378 ==
LOC: JP.ED 16:26 → JP.MS 19:32 → UNDOADMIN 19:32
PROVIDERS: ADMIT Hospitalist; ATTEND Internal Medicine
PROC: 30233N1 Transfusion of Nonautologous Red Blood Cells into Peripheral Vein, Percutaneous Approach (ICD-10-PCS; principal; 2017-09-26)
PROC: 0DJ08ZZ Inspection of Upper Intestinal Tract, Via Natural or Artificial Opening Endoscopic (ICD-10-PCS; 2017-09-27)
PROC: 30233N1 Transfusion of Nonautologous Red Blood Cells into Peripheral Vein, Percutaneous Approach (ICD-10-PCS; 2017-09-27)
DX: K92.2 Gastrointestinal hemorrhage, unspecified (principal); D62 Acute posthemorrhagic anemia; K91.2 Postsurgical malabsorption, not elsewhere classified; Z98.84 Bariatric surgery status; F31.9 Bipolar disorder, unspecified; F99 Mental disorder, not otherwise specified; R19.5 Other fecal abnormalities; R10.9 Unspecified abdominal pain; R11.2 Nausea with vomiting, unspecified; R42 Dizziness and giddiness; W19.XXXA Unspecified fall, initial encounter; Y93.01 Activity, walking, marching and hiking; E53.8 Deficiency of other specified B group vitamins; F41.9 Anxiety disorder, unspecified; F43.10 Post-traumatic stress disorder, unspecified; M19.90 Unspecified osteoarthritis, unspecified site; K21.9 Gastro-esophageal reflux disease without esophagitis; K59.09 Other constipation; H54.7 Unspecified visual loss; Z91.030 Bee allergy status
CPT/HCPCS: 36415; 74177; 80053; 81001; 82272; 82607; 82728; 83540; 83550; 85025; 86850; 86900; 86901; 86920; 86922; 93005; 96361; 96374; 96375; 99285; A9270; C9113; J2405; J7040 ×2; J7050 ×2; Q9965; 36430; 80048; 85018; 85610; 93010; J2250; J2270; J2704; J2916; J3010; J3411; J3475; J3490; J7030; P9016; Q9967

== ENCOUNTER 2017-10-02 12:52 | Emergency (ER) | payer MEDICARE, MEDICAID ==
[2017-10-02] MEDS ORDERED: Sodium Chloride 0.9% 1,000 ML IV SCH (13:00)
--- NOTE | 2017-10-02 13:35 | EDM.PDOC ---
ED HPI GENERAL MEDICAL PROBLEM - General Chief Complaint: General Stated Complaint: REACTION TO BLOOD TRANSFUSION Time Seen by Provider: 10/02/17 13:03 Source of Information: Reports: Patient, Other (Infusion nursing staff) History Limitations: Reports: No Limitations - History of Present Illness INITIAL COMMENTS - FREE TEXT/NARRATIVE: Breanna presents today for possible PRBC infusion reaction. While at the infusion center she developed burning at IV site, the site was changed, developed burning at second IV site and hypotension of 80 systolic. She was brought to the emergency room for evaluation. Onset: Today, Sudden Abdominal Pain Score (Numeric/FACES): 5 - Related Data Allergies Allergy/AdvReac Type Severity Reaction Status Date / Time bee venom Allergy Other Uncoded 10/02/17 13:06 Home Meds: Home Meds ARIPiprazole [Abilify] 10 mg PO DAILY 03/21/16 [History] Cyanocobalamin (Vitamin B-12) [Vitamin B-12] 1,000 mcg PO DAILY 03/21/16 [ History] Acetaminophen [Tylenol] 650 mg PO Q4H PRN #100 tablet 05/08/16 [Rx] Ondansetron [Zofran ODT] 4 mg PO Q4H PRN #30 tab.dis 05/08/16 [Rx] Ca Carbonate/Vitamin D3/Vit K [Calcium + D Soft Chewable Tab] 1 each PO BID 04/26 [History] Cholecalciferol (Vitamin D3) [Vitamin D3] 3,000 unit PO DAILY 05/22/16 [History] Multivitamins with Iron [Child Chew Iron] 1 tab PO BID 05/22/16 [History] Multivits,Th w-Fe,Other Min [Complete Multivitamin] 1 each PO BID 05/22/16 [ History] Sennosides [Senna] 8.6 mg PO BID 05/22/16 [History] Thiamine [Vitamin B-1] 100 mg PO DAILY 06/05/16 [History] Magnesium Oxide 400 mg PO DAILY 12/21/16 [History] Sennosides/Docusate Sodium [Senokot-S Tablet] 2 each PO BEDTIME #60 tablet 12/24 [Rx] OLANZapine [ZyPREXA] 5 mg PO BID 09/26/17 [History] Omeprazole 40 mg PO DAILY 09/26/17 [History] Sertraline [Zoloft] 100 mg PO DAILY 09/26/17 [History] medroxyPROGESTERone Acetate [Depo-Provera] 1 injection IM ASDIRECTED 09/26/17 [ History] buPROPion [buPROPion XL] 150 mg PO DAILY 09/27/17 [History] Sucralfate [Carafate] 1 gm PO WITHMEALSANDBED #120 tablet 09/28/17 [Rx] Past Medical History HEENT History: Reports: Impaired Vision Other HEENT History: wears glasses Gastrointestinal History: Reports: Bowel Obstruction, Chronic Constipation, Chronic Diarrhea, GERD, Hiatal Hernia 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: Other (See Below) Other OB/BYN History: on bcp doesnt get menstrual periods Musculoskeletal History: Reports: Arthritis, Other (See Below) Other Musculoskeletal History: legs Neurological History: Reports: Seizure Other Neuro History: last seizure 12/2015 Psychiatric History: Reports: Anxiety, Bipolar, Depression, PTSD Endocrine/Metabolic History: Reports: Obesity/BMI 30+ Other Endocrine/Metabolic History: wt loss 100# Hematologic History: Reports: B12 Deficiency, Iron Deficiency - Past Surgical History GI Surgical History: Reports: Bariatric Procedure, Colonoscopy, EGD, Other (See Below) Other GI Surgeries/Procedures: GBP 8 mo ago 100 lb wt loss Social & Family History - Family History Family Medical History: Noncontributory - Tobacco Use Smoking Status *Q: Never Smoker - Caffeine Use Caffeine Use: Reports: None - Recreational Drug Use Recreational Drug Use: No - Living Situation & Occupation Living situation: Reports: Single, Other (long term Walker, [place]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[employer]) Occupation: Disabled ED ROS GENERAL - Review of Systems Review Of Systems: See Below Constitutional: Denies: Fever, Chills, Malaise, Weakness, Diaphoresis HEENT: Reports: No Symptoms Respiratory: Denies: Shortness of Breath, Wheezing, Cough, Sputum, Hemoptysis Cardiovascular: Denies: Chest Pain, Blood Pressure Problem, Dyspnea on Exertion , Lightheadedness, Palpitations, Syncope Endocrine: Reports: No Symptoms GI/Abdominal: Reports: No Symptoms : Reports: No Symptoms Musculoskeletal: Reports: No Symptoms Skin: Reports: No Symptoms Neurological: Denies: Confusion, Dizziness, Headache, Numbness, Seizure, Syncope , Tingling, Weakness Psychiatric: Reports: No Symptoms Hematologic/Lymphatic: Reports: No Symptoms Immunologic: Reports: No Symptoms ED EXAM, GENERAL - Physical Exam Exam: See Below Free Text/Narrative:: Breanna presents to the emergency room for possible PRBC infusion reaction. Exam Limited By: No Limitations General Appearance: Alert, WD/WN, No Apparent Distress Eye Exam: Bilateral Eye: EOMI, Normal Fundi, PERRL Ears: Normal External Exam, Normal Canal, Hearing Grossly Normal, Normal TMs Ear Exam: Bilateral Ear: Auricle Normal, Canal Normal, TM normal Nose: Normal Inspection, Normal Mucosa, No Blood Throat/Mouth: Normal Inspection, Normal Lips, Normal Gums, Normal Voice, No Airway Compromise Head: Atraumatic, Normocephalic Neck: Normal Inspection, Supple, Non-Tender, Full Range of Motion. No: Lymphadenopathy (R), Lymphadenopathy (L) Respiratory/Chest: No Respiratory Distress, Lungs Clear, Normal Breath Sounds, No Accessory Muscle Use, Chest Non-Tender Cardiovascular: Normal Peripheral Pulses, Regular Rate, Rhythm, No Edema, No Gallop, No Murmur, No Rub Peripheral Pulses: 2+: Radial (L), Radial (R), Dorsalis Pedis (L), Dorsalis Pedis (R) GI/Abdominal: Normal Bowel Sounds, Soft, Non-Tender, No Organomegaly, No Distention, No Mass Back Exam: Normal Inspection, Full Range of Motion. No: CVA Tenderness (R), CVA Tenderness (L) Extremities: Normal Inspection, Normal Range of Motion, Non-Tender, Normal Capillary Refill, Other (Trace pedal edema) Neurological: Alert, Oriented, CN II-XII Intact, Normal Cognition, Normal Gait, Normal Reflexes, No Motor/Sensory Deficits Psychiatric: Normal Affect, Normal Mood Skin Exam: Warm, Dry, Intact, No Rash, Pallor Lymphatic: No Adenopathy EKG INTERPRETATION EKG Date: 10/02/17 Time: 12:59 Rhythm: NSR Solomon: Normal P-Wave: Present QRS: Normal ST-T: Normal QT: Normal Course - Vital Signs Last Recorded V/S: Last Vital Signs Temp 37.3 C 10/02/17 13:07 Pulse 92 10/02/17 13:50 Resp 17 10/02/17 13:07 BP 103/67 10/02/17 13:50 Pulse Ox 99 10/02/17 13:50 - Orders/Labs/Meds Orders: Active Orders 24 hr Category Date Time Status EKG Documentation Completion [RC] ASDIRECTED Care 10/02/17 12:57 Active Telemetry Monitoring [Cardiac Monitoring] [RC] .As Care 10/02/17 12:56 Active Directed EKG 12 Lead [EK] Routine Ther 10/02/17 12:56 Ordered Labs: Laboratory Tests 10/02/17 10/02/17 Range/Units 12:56 12:56 WBC 3.5 L (4.5-11.0) K/uL RBC 2.68 L (3.30-5.50) M/uL Hgb 7.8 L D (12.0-15.0) g/dL Hct 24.8 L (36.0-48.0) % MCV 93 (80-98) fL MCH 29 (27-31) pg MCHC 32 (32-36) % Plt Count 149 L (150-400) K/uL Neut % (Auto) 55 (36-66) % Lymph % (Auto) 33 (24-44) % Haywood % (Auto) 7 H (2-6) % Eos % (Auto) 4 (2-4) % Baso % (Auto) 0 (0-1) % Sodium 147 (140-148) mmol/L Potassium 4.3 (3.6-5.2) mmol/L Chloride 112 H (100-108) mmol/L Carbon Dioxide 28 (21-32) mmol/L Anion Gap 11.3 (5.0-14.0) mmol/L BUN 13 (7-18) mg/dL Creatinine 0.7 (0.6-1.0) mg/dL Est Cr Clr Drug Dosing 95.48 mL/min Estimated GFR (MDRD) > 60 (>60) Glucose 85 (74-106) mg/dL Calcium 7.8 L (8.5-10.1) mg/dL Possible post transfusion lab work is all negative. Meds: Medications Discontinued Medications Generic Name Dose Route Start Last Admin Trade Name Freq PRN Reason Stop Dose Admin Sodium Chloride 1,000 mls @ 150 mls/hr 10/02/17 13:00 10/02/17 13:11 Normal Saline IV 150 mls/hr ASDIRECTED RASHAD Administration - Re-Assessments/Exams Free Text/Narrative Re-Assessment/Exam: 10/02/17 13:37 Attempt to contact primary provider Sakina BARAJAS with suggestions for care. 10/02/17 13:52 Sakina Hernandez telephone call received. Patient status, lab results reviewed with her. Breanna will be discharged to home, report for blood transfusion on ThursdayOctober 06. Breanna should rest this weekend, keep her self hydrated and report to the ER for any worsening, issues or concerns. 10/02/17 13:57 Departure - Departure Time of Disposition: 13:53 Disposition: Home, Self-Care 01 Clinical Impression: Vasovagal reaction, Anemia - Discharge Information Instructions: Anemia, Vasovagal Syncope, Adult Referrals: PCP,None [Primary Care Provider] - Forms: ED Department Discharge Additional Instructions: You have been evaluated and treated in the emergency room for a possible blood transfusion reaction. You did not suffer from a blood transfusion reaction. You suffered from a vasovagal reaction, anemia continues. Your hemoglobin is now 7.8 Sakina BARAJAS states you can be discharged to home, report for blood transfusion on ThursdayOctober 06. The transfusion center will contact you for appointment and time. You should rest this weekend, keep hydrated and report to the emergency room for any worsening, issues or concerns. - My Orders Last 24 Hours: My Active Orders 10/02/17 12:56 Telemetry Monitoring [Cardiac Monitoring] [RC] .As Directed EKG 12 Lead [EK] Routine 10/02/17 12:57 EKG Documentation Completion [RC] ASDIRECTED - Assessment/Plan Last 24 Hours: My Active Orders 10/02/17 12:56 Telemetry Monitoring [Cardiac Monitoring] [RC] .As Directed EKG 12 Lead [EK] Routine 10/02/17 12:57 EKG Documentation Completion [RC] ASDIRECTED Assessment:: Vasovagal reaction, anemia continues. hemoglobin is now 7.8 Plan: Patient evaluated and treated in the emergency room for a possible blood transfusion reaction. She did not suffer from a blood transfusion reaction, post transfusion lab work all negative. She most likely suffered from a vasovagal reaction, anemia continues. Hgb 7.8 Sakina BARAJAS states patient can be discharged to home, report for blood transfusion on ThursdayOctober 06. The transfusion center will contact patient for appointment and time. Patient advised she should rest this weekend, keep hydrated and report to the emergency room for any worsening, issues or concerns.
[2017-10-02 14:24] VITALS: BP 103/67
== END 2017-10-02 14:17 | disposition home or self-care (01) ==
LOC: JP.ED 12:52
DX: R55 Syncope and collapse (principal); D64.9 Anemia, unspecified; Z91.030 Bee allergy status; Z79.899 Other long term (current) drug therapy
CPT/HCPCS: 36415; 80048; 82962; 85025; 93005; 99284; J7030

== ENCOUNTER 2017-10-11 23:37 | Emergency (ER) | payer MEDICARE, MEDICAID ==
[2017-10-11 23:45] VITALS: BP 115/77
[2017-10-12] MEDS ORDERED: Lactated Ringers 1,000 ML IV ONE (00:06)
[2017-10-12] MEDS ORDERED: Ondansetron 4 MG Tab.DIS PO ONE (00:08)
[2017-10-12] MEDS ORDERED: Dicyclomine 10 MG Cap PO ONE ×2 (00:08→01:25)
[2017-10-12] MEDS ORDERED: Acetaminophen 500 MG Tab PO ONE (00:09)
--- NOTE | 2017-10-12 00:15 | EDM.PDOC ---
ED HPI GENERAL MEDICAL PROBLEM - General Chief Complaint: Abdominal Pain Stated Complaint: MEDICAL [facility]IA [facility] Time Seen by Provider: 10/11/17 23:55 Source of Information: Reports: Patient, EMS, Old Records, RN History Limitations: Reports: No Limitations - History of Present Illness INITIAL COMMENTS - FREE TEXT/NARRATIVE: 27 yo female presents with abdominal pain and vomiting. Has had abdominal pain for a couple weeks. Started vomiting in the morning 10/11 and has not kept anything down all day. She denies hematemesis, but states that her stools are red. Told nursing that her last BM was yesterday and it was brown in color. Standing and eating both make her pain worse. Was recently found to be anemic from GI blood loss and required transfusions for this. Is currently on both sucralfate and omeprazole. EGD done on 09/26/17 was negative, but patient had proven GI blood loss. Last BM was hard in consistency. Onset: Gradual Onset Date: 09/28/17 Duration: Week(s):, Getting Worse Location: Reports: Abdomen Quality: Reports: Ache Severity: Moderate Improves with: Reports: Other (lying and not eating) Worsens with: Reports: Eating, Other (standing) Context: Reports: Other (GI blood loss, source not yet found. Tx'd currently for peptic ulcer dz. Bleeding source may be lower in the GI tract. ) Associated Symptoms: Reports: Nausea/Vomiting. Denies: Fever/Chills Treatments CLIENT REPRESENTATIVE: Reports: Other (see below) (sucralfate/omeprazole) Other Treatments CLIENT REPRESENTATIVE: none Upper Middle Abdomen Pain Score (Numeric/FACES): 7 - Related Data Allergies Allergy/AdvReac Type Severity Reaction Status Date / Time bee venom Allergy Other Uncoded 10/11/17 23:46 Home Meds: Home Meds ARIPiprazole [Abilify] 10 mg PO DAILY 03/21/16 [History] Cyanocobalamin (Vitamin B-12) [Vitamin B-12] 1,000 mcg PO DAILY 03/21/16 [ History] Acetaminophen [Tylenol] 650 mg PO Q4H PRN #100 tablet 05/08/16 [Rx] Ondansetron [Zofran ODT] 4 mg PO Q4H PRN #30 tab.dis 05/08/16 [Rx] Ca Carbonate/Vitamin D3/Vit K [Calcium + D Soft Chewable Tab] 1 each PO BID 04/26 [History] Cholecalciferol (Vitamin D3) [Vitamin D3] 3,000 unit PO DAILY 05/22/16 [History] Multivits,Th w-Fe,Other Min [Complete Multivitamin] 1 each PO BID 05/22/16 [ History] Thiamine [Vitamin B-1] 100 mg PO DAILY 06/05/16 [History] Magnesium Oxide 400 mg PO DAILY 12/21/16 [History] Sennosides/Docusate Sodium [Senokot-S Tablet] 2 each PO BEDTIME #60 tablet 12/24 [Rx] OLANZapine [ZyPREXA] 5 mg PO BID 09/26/17 [History] Omeprazole 40 mg PO DAILY 09/26/17 [History] Sertraline [Zoloft] 100 mg PO DAILY 09/26/17 [History] medroxyPROGESTERone Acetate [Depo-Provera] 1 injection IM ASDIRECTED 09/26/17 [ History] buPROPion [buPROPion XL] 150 mg PO DAILY 09/27/17 [History] Sucralfate [Carafate] 1 gm PO WITHMEALSANDBED #120 tablet 09/28/17 [Rx] Past Medical History HEENT History: Reports: Impaired Vision Other HEENT History: wears glasses Gastrointestinal History: Reports: Bowel Obstruction, Chronic Constipation, Chronic Diarrhea, GERD, Hiatal Hernia 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 Denies: Black Stool, Constipation, Diarrhea, Distension, Flatus, Hematemesis, Hematochezia, Melena : Reports: No Symptoms Musculoskeletal: Reports: No Symptoms Skin: Reports: No Symptoms Neurological: Reports: No Symptoms Psychiatric: Reports: No Symptoms ED EXAM, GI/ABD - Physical Exam Exam: See Below Exam Limited By: No Limitations General Appearance: Alert, WD/WN, No Apparent Distress Eyes: Bilateral: Normal Appearance Ears: Normal External Exam, Normal Canal, Hearing Grossly Normal Nose: Normal Inspection, Normal Mucosa, No Blood Throat/Mouth: Normal Inspection, Normal Lips, Normal Oropharynx, Normal Voice, No Airway Compromise Head: Atraumatic, Normocephalic Neck: Normal Inspection Respiratory/Chest: No Respiratory Distress, Lungs Clear, Normal Breath Sounds, No Accessory Muscle Use Cardiovascular: Regular Rate, Rhythm, No Edema GI/Abdominal Exam: Soft, No Distention, Tender (diffusely), Abnormal Bowel Sounds (increased). No: Non-Tender, Distended, Guarding, Rigid, Rebound Back Exam: Normal Inspection. No: CVA Tenderness (R), CVA Tenderness (L) Extremities: Normal Inspection, Normal Range of Motion, Non-Tender, No Pedal Edema Neurological: Alert, Oriented, CN II-XII Intact, Normal Cognition, No Motor/ Sensory Deficits Psychiatric: Normal Affect, Normal Mood Skin Exam: Warm, Dry, Intact, Normal Color, No Rash Lymphatic: No Adenopathy Course - Vital Signs Text/Narrative:: Good results after suppository and this BM reduced her pain as well. Last Recorded V/S: Last Vital Signs Temp 36.5 C 10/11/17 23:38 Pulse 93 10/11/17 23:38 Resp 14 10/11/17 23:38 BP 115/77 10/11/17 23:38 Pulse Ox 99 10/11/17 23:38 Orthostatic Blood Pressure [ 116/75 Standing] Orthostatic Blood Pressure [ 118/74 Sitting] Orthostatic Blood Pressure [ 123/75 Supine] - Orders/Labs/Meds Orders: Active Orders 24 hr Category Date Time Status Enema [RC] ASDIRECTED Care 10/12/17 03:01 Active Orthostatic Vital Signs [RC] ASDIRECTED Care 10/12/17 00:07 Active Abdomen 1V Flat [CR] Stat Exams 10/12/17 01:28 Taken Hemoccult [OCCULT BLOOD DIAGNOSTIC] [OP] Stat Lab 10/12/17 03:24 Ordered Labs: Laboratory Tests 10/12/17 10/12/17 Range/Units 00:20 00:20 WBC 3.7 L (4.5-11.0) K/uL RBC 3.70 (3.30-5.50) M/uL Hgb 10.4 L (12.0-15.0) g/dL Hct 34.1 L (36.0-48.0) % MCV 92 (80-98) fL MCH 28 (27-31) pg MCHC 31 L (32-36) % Plt Count 219 (150-400) K/uL Sodium 141 (140-148) mmol/L Potassium 3.8 (3.6-5.2) mmol/L Chloride 105 (100-108) mmol/L Carbon Dioxide 28 (21-32) mmol/L Anion Gap 8.5 (5.0-14.0) mmol/L BUN 14 (7-18) mg/dL Creatinine 0.8 (0.6-1.0) mg/dL Est Cr Clr Drug Dosing 82.80 mL/min Estimated GFR (MDRD) > 60 (>60) Glucose 91 (74-106) mg/dL Calcium 8.3 L (8.5-10.1) mg/dL Meds: Medications Discontinued Medications Generic Name Dose Route Start Last Admin Trade Name Freq PRN Reason Stop Dose Admin Acetaminophen 1,000 mg 10/12/17 00:09 10/12/17 00:51 Tylenol Extra Strength PO 10/12/17 00:10 1,000 mg ONETIME ONE Administration Bisacodyl 10 mg 10/12/17 02:07 10/12/17 02:20 Dulcolax RECTAL 10/12/17 02:08 10 mg ONETIME ONE Administration Dicyclomine HCl 20 mg 10/12/17 00:08 10/12/17 00:54 Bentyl PO 10/12/17 00:09 20 mg ONETIME ONE Administration Dicyclomine HCl 10 mg 10/12/17 01:25 10/12/17 01:48 Bentyl PO 10/12/17 01:26 10 mg ONETIME ONE Administration Lactated Ringer's 1,000 mls @ 1,000 mls/hr 10/12/17 00:06 10/12/17 00:34 Ringers, Lactated IV 10/12/17 01:05 1,000 mls/hr BOLUS ONE Administration Metoclopramide HCl 10 mg 10/12/17 01:24 10/12/17 01:49 Reglan IVPUSH 10/12/17 01:25 10 mg ONETIME ONE Administration Ondansetron HCl 4 mg 10/12/17 00:08 10/12/17 00:26 Zofran Odt PO 10/12/17 00:09 4 mg ONETIME ONE Administration - Radiology Interpretation Free Text/Narrative:: Single view abd P-[id number]-[id number]-specific findings, stool in rectum and ascending colon. Departure - Departure Time of Disposition: 04:20 Disposition: Home, Self-Care 01 Condition: Good Clinical Impression: Constipation Qualifiers: Constipation type: unspecified constipation type Qualified Code(s): K59.00 - Constipation, unspecified - Discharge Information Referrals: PCP,None [Primary Care Provider] - Forms: ED Department Discharge - My Orders Last 24 Hours: My Active Orders 10/12/17 00:07 Orthostatic Vital Signs [RC] ASDIRECTED 10/12/17 01:28 Abdomen 1V Flat [CR] Stat 10/12/17 03:01 Enema [RC] ASDIRECTED 10/12/17 03:24 Hemoccult [OCCULT BLOOD DIAGNOSTIC] [OP] Stat - Assessment/Plan Last 24 Hours: My Active Orders 10/12/17 00:07 Orthostatic Vital Signs [RC] ASDIRECTED 10/12/17 01:28 Abdomen 1V Flat [CR] Stat 10/12/17 03:01 Enema [RC] ASDIRECTED 10/12/17 03:24 Hemoccult [OCCULT BLOOD DIAGNOSTIC] [OP] Stat
[2017-10-12] MEDS ORDERED: Metoclopramide 10 MG/2 ML SDV IVPUSH ONE (01:24)
[2017-10-12] MEDS ORDERED: Bisacodyl 10 MG Supp RECTAL ONE (02:07)
--- NOTE | 2017-10-12 10:15 | CR ---
Abdomen 1V Flat CLINICAL HISTORY: Abdominal pain FINDINGS: The bowel gas pattern is nonobstructive. No abnormal masses are noted. There is moderate re tained stool throughout the colon. Patient has had previous left upper quadrant surgery. IMPRESSION: Moderate retained stool Nonacute intestinal gas pattern
== END 2017-10-12 04:52 | disposition home or self-care (01) ==
LOC: JP.ED 23:37
DX: K59.00 Constipation, unspecified (principal); Z79.899 Other long term (current) drug therapy; Z91.030 Bee allergy status; Z98.84 Bariatric surgery status
CPT/HCPCS: 36415; 74018; 80048; 85027; 96361; 96374; 99284; A9270; J2765; J7120; 82272